=== PATIENT | female | born 1955 | race American Indian/Alaskan Native ===

== ENCOUNTER 2018-04-18 21:45 | Emergency (ER) | payer SELFPAY ==
[~2018-04-18] VITALS: Ht 160 cm; Wt 113.4 kg
[~2018-04-18 21:45] MED LIST: ACET325 PO; AMLO5 PO; ASPI81EC; ATOR20 PO; Aspirin EC81 MG PO; BISA10S PR; CEFU500T30 PO; CHOL10002 PO; CIPR500 PO; CVS DISPOSABLE399 ML PR; CYCL10 PO; DICY20 PO; FLUC150A PO; FURO20; FURO40; Glyburide5 MG PO; HYDACE5 PO; HYDCHL25 PO; IBUP400; LEVFLO250 PO; LEVFLO500 PO; LEVSOD100; LEVSOD100 PO; LEVSOD112 PO; LEVSOD125 PO; LEVSOD25 PO; LISI5; LISI5 PO; LOPE2C PO; LOSA25 PO; LOVA20 PO; LOVA40 PO; METF500 PO; METF500C; METH1TAB8; METO50ER; METR500 PO; Milk Of Ma400 MG/5 M PO; NYST100TC TOP; NYSTATIN1 EAC1 TOP; OMEPRAZOLE MAGN20 MG PO; ONDA4 PO; OXYACE5T PO; PENVK500 PO; POLY500 PO; POTCHL10ER; POTCHL20ER; PROCODE120 PO; PROM25 PO; STOMUL; SULTRIDS PO; Tylenol325 MG PO; [UNRECOGNIZED DRUG - OTHER] TOP
[2018-04-18] MEDS ORDERED: LOSA50 PO (22:18)
[2018-04-18] MEDS ORDERED: FERRIC CITRATE210 MG PO (22:18)
[2018-04-18] MEDS ORDERED: OMEPRAZOLE MAGN20 MG PO (22:22)
[2018-04-18 22:29] LABS: BASOPHILS ABSOLUTE AUTO 0.09 K/mm3 (0.00-0.23); BASOPHILS PERCENT AUTO 1 % (0-2); EOSINOPHILS PERCENT AUTO 9 % (0-6); Hematocrit 38.6 % (33.0-51.0); Hemoglobin 12.8 g/dL (11.5-16.0); IMMATURE GRAN ABSOLUTE AUTO 0.16 K/mm3 (0.00-0.10); IMMATURE GRAN PERCENT AUTO 1 % (0-1); LYMPHOCYTES PERCENT AUTO 30 % (21-46); MONOCYTES ABSOLUTE AUTO 0.89 K/mm3 (0.16-1.47); MONOCYTES PERCENT AUTO 7 % (4-13); Mean Corpuscular HGB 27.9 pg (26.0-34.0); Mean Corpuscular HGB Conc 33.2 g/dL (31.5-36.5); Mean Corpuscular Volume 84 fL (80-100); Mean Platelet Volume 10.3 fL (9.1-12.4); NEUTROPHILS PERCENT AUTO 52 % (41-73); Platelet Count 215 K/mm3 (150-400); RDW Coefficient Variation 13.5 % (11.7-14.2); RDW Standard Deviation 41.9 fL (35.1-46.3); Red Blood Cell Count 4.58 M/mm3 (3.80-5.20); White Blood Cell Count 12.04 K/mm3 (4.00-11.30)
[2018-04-18 22:40] LABS: Prothrombin Time Results 10.3 Sec (9.7-11.5)
[2018-04-18 22:58] LABS: Albumin, Blood 3.7 g/dL (3.4-5.0); Bilirubin, Total 0.3 mg/dL (0.1-1.0); Bun/Creatinine Ratio 23.2 (12.0-20.0); Creatinine, Blood 1.77 mg/dL (0.40-1.00); Globulin, Blood 3.8 g/dL (2.2-4.0); Potassium, Blood 3.7 mmol/L (3.5-5.5); Total Protein, Blood 7.5 g/dL (6.4-8.2)
== END 2018-04-18 23:20 | disposition short-term general hospital (02) ==
LOC: ER 21:45
PROVIDERS: Emergency Medicine
DX: I63.9 Cerebral infarction, unspecified (principal); I69.951 Hemiplegia and hemiparesis following unspecified cerebrovascular disease affecting right dominant side; N28.9 Disorder of kidney and ureter, unspecified; E03.9 Hypothyroidism, unspecified; E11.9 Type 2 diabetes mellitus without complications; I10 Essential (primary) hypertension; E78.00 Pure hypercholesterolemia, unspecified; F17.200 Nicotine dependence, unspecified, uncomplicated; Z79.899 Other long term (current) drug therapy; Z79.82 Long term (current) use of aspirin
CPT/HCPCS: 36415; 51702; 70450; 71045; 80053; 82947; 84484; 85025; 85610; 93005; 93010; 96374; 96375; 99285-25; J2310; J2405; J2997; Q3014

== ENCOUNTER → 2018-11-21 | Outpatient (CLI) | payer MEDICARE, OTHER ==
[~2018-11-21] MED LIST changes: +FERRIC CITRATE210 MG PO; +LOSA50 PO
[2018-11-21 14:30] LABS: Bilirubin, Urine Neg (Neg); Blood, Urine 1+ (Neg); Glucose Qualitative, Urine Neg (Neg); Ketones, Urine Neg (Neg); Leukocyte Esterase, Urine 3+ (Neg); Nitrite, Urine Neg (Neg); Protein, Urine Neg (Neg); Specific Gravity, Urine 1.015 (1.003-1.022); Urobilinogen, Urine NORM (Normal)
[2018-11-21 14:53] LABS: Appearance, Urine Hazy (Clear); Color, Urine Yellow (P-Yellow); White Blood Cells, Urine 50-100 /hpf (0-5)
[2018-11-21 14:54] LABS: Bacteria Many /hpf; Squamous Epithelial Cells Mod /hpf (Few)
== END | disposition home or self-care (01) ==
LOC: LAB 14:22 → LAB SHORT 14:22
PROVIDERS: Nurse Practitioner Family
DX: N39.0 Urinary tract infection, site not specified (principal)
CPT/HCPCS: 81001; 87077; 87086; 87186

== ENCOUNTER 2019-02-24 10:21 | Day surgery (SDC) | payer MEDICARE, OTHER ==
[~2019-02-24] VITALS: Ht 154.9 cm; Wt 88.0 kg
[~2019-02-24 10:21] MED LIST changes: +BUPR75 PO; +CALMOSEPTINE O3.5 GM TOP; +Fruity C250 MG PO; +GLYC2 PO; +Humalog100 UNIT/1 SC; +LACT PO; +MIRALAX17 GM PO; +MULTI VITAMIN1 EACH PO; +Prilosec10 M1 PO; +[UNRECOGNIZED DRUG - OTHER] PO
== END 2019-02-24 12:35 | disposition home or self-care (01) ==
LOC: ORSCSDS 10:21
PROVIDERS: Surgery
PROC: 0DJD8ZZ Inspection of Lower Intestinal Tract, Via Natural or Artificial Opening Endoscopic (ICD-10-PCS; principal; 2019-02-24 11:45)
DX: Z12.11 Encounter for screening for malignant neoplasm of colon (principal); I69.959 Hemiplegia and hemiparesis following unspecified cerebrovascular disease affecting unspecified side; N18.3 Chronic kidney disease, stage 3 (moderate); E03.9 Hypothyroidism, unspecified; E78.5 Hyperlipidemia, unspecified; E11.9 Type 2 diabetes mellitus without complications; G47.33 Obstructive sleep apnea (adult) (pediatric); F17.210 Nicotine dependence, cigarettes, uncomplicated; E66.01 Morbid (severe) obesity due to excess calories; Z68.36 Body mass index [BMI] 36.0-36.9, adult; Z79.4 Long term (current) use of insulin; Z79.899 Other long term (current) drug therapy; Z79.82 Long term (current) use of aspirin
CPT/HCPCS: 82947; J2704; J7120

== ENCOUNTER 2019-03-10 16:44 | Emergency (ER) | payer MEDICARE, OTHER ==
[~2019-03-10] VITALS: Ht 154.9 cm; Wt 77.1 kg
[~2019-03-10 16:44] MED LIST changes: +ASPI81CH PO; -CALMOSEPTINE O3.5 GM TOP; +Calci-Chew500 MG PO; -Fruity C250 MG PO; -MULTI VITAMIN1 EACH PO; +OMEP20ER PO; -Prilosec10 M1 PO; +Thera-M1 EACH PO
[2019-03-10] MEDS ORDERED: BISA10S PR (17:13)
[2019-03-10] MEDS ORDERED: Milk Of Ma400 MG/5 M PO (17:13)
[2019-03-10] MEDS ORDERED: CVS DISPOSABLE399 ML PR (17:14)
[2019-03-10 17:35] LABS: BASOPHILS ABSOLUTE AUTO 0.07 K/mm3 (0.00-0.23); BASOPHILS PERCENT AUTO 0 % (0-2); EOSINOPHILS ABSOLUTE AUTO 0.44 K/mm3 (0.00-0.68); EOSINOPHILS PERCENT AUTO 3 % (0-6); Hemoglobin 12.8 g/dL (11.5-16.0); IMMATURE GRAN ABSOLUTE AUTO 0.11 K/mm3 (0.00-0.10); IMMATURE GRAN PERCENT AUTO 1 % (0-1); LYMPHOCYTES ABSOLUTE AUTO 1.93 K/mm3 (0.84-5.20); LYMPHOCYTES PERCENT AUTO 12 % (21-46); MONOCYTES PERCENT AUTO 7 % (4-13); Mean Corpuscular HGB 25.4 pg (26.0-34.0); Mean Corpuscular HGB Conc 31.2 g/dL (31.5-36.5); Mean Corpuscular Volume 81 fL (80-100); Mean Platelet Volume 10.9 fL (9.1-12.4); NEUTROPHILS ABSOLUTE AUTO 12.99 K/mm3 (1.96-9.15); NEUTROPHILS PERCENT AUTO 78 % (41-73); Platelet Count 265 K/mm3 (150-400); RDW Coefficient Variation 13.7 % (11.7-14.2); Red Blood Cell Count 5.04 M/mm3 (3.80-5.20); White Blood Cell Count 16.64 K/mm3 (4.00-11.30)
[2019-03-10 17:49] LABS: Alanine Aminotransfer (ALT/SGP 21 U/L (12-78); Albumin, Blood 3.7 g/dL (3.4-5.0); Albumin/Globulin Ratio 0.8 (0.8-1.8); Alk Phos 123 U/L (50-136); Anion Gap 11 mmol/L (6-16); Aspartate Aminotrans (AST/SGOT 16 U/L (12-37); Bilirubin, Total 0.6 mg/dL (0.1-1.0); Blood Urea Nitrogen 33 mg/dL (8-24); Bun/Creatinine Ratio 19.2 (12.0-20.0); CO2, Blood 23 mmol/L (21-32); Calcium, Blood 9.7 mg/dL (8.5-10.1); Chloride, Blood 104 mmol/L (98-108); Creatinine, Blood 1.72 mg/dL (0.40-1.00); Globulin, Blood 4.5 g/dL (2.2-4.0); Glomerular Filtration Rate 32 (60-); Glucose, Blood 100 mg/dL (70-99); Sodium, Blood 138 mmol/L (136-145); Total Protein, Blood 8.2 g/dL (6.4-8.2); Troponin I <0.015 ng/mL (0.000-0.040)
[2019-03-10 18:05] LABS: International Normalized Ratio 0.97; Prothrombin Time Results 10.3 Sec (9.7-11.5)
[2019-03-10 19:56] LABS: Source, Urine Clean Catch
[2019-03-10 20:03] LABS: Bilirubin, Urine Neg (Neg); Blood, Urine 5+ (Neg); Glucose Qualitative, Urine Neg (Neg); Ketones, Urine Neg (Neg); Leukocyte Esterase, Urine 3+ (Neg); Nitrite, Urine Pos (Neg); Protein, Urine 1+ (Neg); Specific Gravity, Urine 1.015 (1.003-1.022); Urobilinogen, Urine NORM (Normal)
[2019-03-10 20:09] LABS: Appearance, Urine Hazy (Clear); Color, Urine Pale Yellow (P-Yellow)
[2019-03-10 20:14] LABS: Bacteria Many /hpf; Squamous Epithelial Cells Few /hpf (Few); White Blood Cells, Urine TNTC /hpf (0-5)
[2019-03-10] MEDS ORDERED: CEPH500 PO (20:31)
== END 2019-03-10 21:43 | disposition home or self-care (01) ==
LOC: ER 16:44
PROVIDERS: Emergency Medicine
DX: N39.0 Urinary tract infection, site not specified (principal); Z79.899 Other long term (current) drug therapy; Z79.82 Long term (current) use of aspirin; Z79.4 Long term (current) use of insulin; E03.9 Hypothyroidism, unspecified; E11.9 Type 2 diabetes mellitus without complications; I10 Essential (primary) hypertension; Z86.73 Personal history of transient ischemic attack (TIA), and cerebral infarction without residual deficits; Z87.891 Personal history of nicotine dependence
CPT/HCPCS: 36415; 70450; 72125; 80053; 81001; 84484; 85025; 85610; 87077; 87086; 87186; 93005; 93010; 99285-25

== ENCOUNTER 2019-05-06 16:07 | Inpatient (IN) | payer MEDICARE, OTHER ==
[~2019-05-06] VITALS: Ht 162.6 cm; Wt 87.3 kg
[~2019-05-06 16:07] MED LIST changes: +CEPH500 PO
[2019-05-06 16:37] LABS: BASOPHILS ABSOLUTE AUTO 0.08 K/mm3 (0.00-0.23); BASOPHILS PERCENT AUTO 1 % (0-2); EOSINOPHILS ABSOLUTE AUTO 0.91 K/mm3 (0.00-0.68); EOSINOPHILS PERCENT AUTO 8 % (0-6); Hematocrit 41.4 % (33.0-51.0); Hemoglobin 12.9 g/dL (11.5-16.0); IMMATURE GRAN ABSOLUTE AUTO 0.05 K/mm3 (0.00-0.10); IMMATURE GRAN PERCENT AUTO 0 % (0-1); LYMPHOCYTES ABSOLUTE AUTO 3.27 K/mm3 (0.84-5.20); LYMPHOCYTES PERCENT AUTO 29 % (21-46); MONOCYTES ABSOLUTE AUTO 0.81 K/mm3 (0.16-1.47); MONOCYTES PERCENT AUTO 7 % (4-13); Mean Corpuscular HGB Conc 31.2 g/dL (31.5-36.5); Mean Corpuscular Volume 80 fL (80-100); NEUTROPHILS ABSOLUTE AUTO 6.08 K/mm3 (1.96-9.15); NEUTROPHILS PERCENT AUTO 54 % (41-73); Platelet Count 264 K/mm3 (150-400); RDW Coefficient Variation 13.4 % (11.7-14.2); RDW Standard Deviation 39.2 fL (35.1-46.3); Red Blood Cell Count 5.16 M/mm3 (3.80-5.20)
[2019-05-06 16:53] LABS: International Normalized Ratio 0.97; Prothrombin Time Results 10.3 Sec (9.7-11.5)
[2019-05-06 17:00] LABS: Albumin, Blood 3.6 g/dL (3.4-5.0); Albumin/Globulin Ratio 0.8 (0.8-1.8); Bilirubin, Total 0.5 mg/dL (0.1-1.0); Bun/Creatinine Ratio 16.3 (12.0-20.0); Calcium, Blood 9.8 mg/dL (8.5-10.1); Creatinine, Blood 1.78 mg/dL (0.40-1.00); Globulin, Blood 4.3 g/dL (2.2-4.0); Potassium, Blood 4.2 mmol/L (3.5-5.5); Total Protein, Blood 7.9 g/dL (6.4-8.2)
[2019-05-06 17:51] LABS: Source, Urine Clean Catch
[2019-05-06 18:09] LABS: Bilirubin, Urine Neg (Neg); Blood, Urine 1+ (Neg); Glucose Qualitative, Urine Neg (Neg); Ketones, Urine Neg (Neg); Leukocyte Esterase, Urine 3+ (Neg); Nitrite, Urine Pos (Neg); Protein, Urine Neg (Neg); Urobilinogen, Urine NORM (Normal); pH, Urine 6.5 (5.0-8.0)
[2019-05-06 18:22] LABS: Appearance, Urine Hazy (Clear); Color, Urine Pale Yellow (P-Yellow)
[2019-05-06 18:23] LABS: White Blood Cells, Urine 25-50 /hpf (0-5)
[2019-05-06 18:24] LABS: Bacteria Mod /hpf; Squamous Epithelial Cells Many /hpf (Few)
[2019-05-06] MEDS ORDERED: ASCO500 PO (20:24)
[2019-05-06] MEDS ORDERED: CALMOSEPTINE O3.5 GM TOP (20:32)
[2019-05-06] MEDS ORDERED: HUMULIN N100 UNIT/1 SC (20:33)
--- NOTE | 2019-05-07 04:10 | NUR ---
PT WOKE UP THIS AM WITH HIVES AND SWOLLEN LIPS. ONLY NEW MED PT RECIEVED IS IV ROCEPHIN EARLIER IN THE NIGHT FROM ED. CALLED [facility] TO REPORT FINDINGS, ORDERS IM BENADRYL 50 MG. ADDED ROCEPHIN TO ALLERGY LIST.
--- NOTE | 2019-05-07 05:29 | NUR ---
ONE HOUR POST-ADMINISTRATION OF IM BENADRYL PT IS STILL WITH HIVES BUT SIZE AND FREQUENCY HAS SIGNIFICANTLY DECREASED. STILL ATTEMPTING TO GAIN IV ACCESS, PT QUITE RESTLESS AND RESISTANT.
--- NOTE | 2019-05-07 06:23 | NUR ---
SHIFT SUMMARY PT ADMITTED EARLIER TONIGHT FOR AMS AND METABOLIC ENCEPHALOPATHY, UTI POS. TREATED WITH IV ROCEPHIN IN ER, AND PT WOKE THIS MORNING WITH HIVES. ROCEPHIN ADDED TO ALLERGY LIST AND PT TREATED WITH 50 MG IV BENADRYL WHICH HAS PROVIDED SOME RELIEF SO FAR (PEAK EFFECT IS OVER 1- 4 HRS). PT ALSO RIPPED OUT BOTH IVs, THIS RN ATTEMPTED TO PLACE IV TWICE AND DATA WAREHOUSE MANAGER ATTEMPTED TO PLACE IV TWICE WITH NO SUCCESS PT IS RESTLESS AND PULLS AWAY. PT IS ALERT TO SELF AND ANSWERING YES/NO Q'S. HOWEVER, MOSTLY NONVERBAL. NO OTHER ACUTE CHANGES TO REPORT. WILL CONT TO MONITOR AND PROVIDE CARE UNTIL PRESUMED BY ONCOMING RN.
--- NOTE | 2019-05-07 14:08 | NUR ---
HER LOC WAS DECREASED THIS MORNING. LATER WHEN SHE WAS ALERT, I GAVE HER HER MEDS WHOLE IN PUDDING. CBG'S STABLE. ATTENDS CHANGED PRN. HER SISTER CALLED AND HER DAUGHTER CALEB CAME IN. BOTH ARE ENCOURAGED SHE WILL NOT NEED A LONG HOSPITALIZATION.
--- NOTE | 2019-05-07 17:46 | NUR ---
SHE IS UP IN THE CHAIR FOR DINNER. CHAIR ALARM ON. SHE IS ABLE TO FEED HERSELF. SHE REQUIRED JUST 1 ASSIST. SHE HAS REMAINED ALERT SINCE SHE "WOKE UP" MID-MORNING. ON RA. MOSTLY NONVERBAL. SHE SEEMS TO UNDERSTAND WHAT WE SAY TO HER. PT LUCITALORRAINE WILL BE TOMORROW. HER DAUGHTER WAS HAPPY TO SEE HOW MUCH BETTER SHE LOOKS TODAY.
--- NOTE | 2019-05-08 04:28 | NUR ---
SHIFT SUMMARY NO ACUTE CHANGES TONIGHT. PT IS ALERT TO SELF, FOLLOWS DIRECTIONS, SPEAKING IN SMALL SENTENCES/ANSWERS YES NO Q'S. VSS, RESP E/U ON RA. BED ALARM ON FOR SAFETY PT WILL TRY TO CRAWL OOB WITHOUT ASSISTANCE. HORACIO ROGERS, ULISES. [facility] [place] A [place] D/C BACK TO [place] TODAY. PT RESTING IN BED AT THIS TIME, CALL LT IN REACH. WILL CONT TO MONITOR AND PROVIDE CARE UNTIL PRESUMED BY ONCOMING RN.
[2019-05-08 05:10] LABS: BASOPHILS ABSOLUTE AUTO 0.04 K/mm3 (0.00-0.23); BASOPHILS PERCENT AUTO 1 % (0-2); EOSINOPHILS ABSOLUTE AUTO 0.77 K/mm3 (0.00-0.68); EOSINOPHILS PERCENT AUTO 10 % (0-6); Hematocrit 38.6 % (33.0-51.0); Hemoglobin 12.2 g/dL (11.5-16.0); IMMATURE GRAN ABSOLUTE AUTO 0.02 K/mm3 (0.00-0.10); IMMATURE GRAN PERCENT AUTO 0 % (0-1); LYMPHOCYTES ABSOLUTE AUTO 1.77 K/mm3 (0.84-5.20); LYMPHOCYTES PERCENT AUTO 23 % (21-46); MONOCYTES ABSOLUTE AUTO 0.67 K/mm3 (0.16-1.47); MONOCYTES PERCENT AUTO 9 % (4-13); Mean Corpuscular HGB 25.7 pg (26.0-34.0); Mean Corpuscular HGB Conc 31.6 g/dL (31.5-36.5); Mean Corpuscular Volume 81 fL (80-100); Mean Platelet Volume 10.6 fL (9.1-12.4); NEUTROPHILS ABSOLUTE AUTO 4.48 K/mm3 (1.96-9.15); NEUTROPHILS PERCENT AUTO 58 % (41-73); Platelet Count 236 K/mm3 (150-400); RDW Coefficient Variation 13.6 % (11.7-14.2); RDW Standard Deviation 40.2 fL (35.1-46.3); Red Blood Cell Count 4.74 M/mm3 (3.80-5.20); White Blood Cell Count 7.75 K/mm3 (4.00-11.30)
[2019-05-08 05:24] LABS: Albumin, Blood 3.2 g/dL (3.4-5.0); Anion Gap 7 mmol/L (6-16); Blood Urea Nitrogen 31 mg/dL (8-24); Bun/Creatinine Ratio 15.3 (12.0-20.0); CO2, Blood 27 mmol/L (21-32); Calcium, Blood 9.6 mg/dL (8.5-10.1); Chloride, Blood 108 mmol/L (98-108); Creatinine, Blood 2.02 mg/dL (0.40-1.00); Glomerular Filtration Rate 26 (60-); Glucose, Blood 157 mg/dL (70-99); Phosphorus, Blood 4.2 mg/dL (2.5-4.9); Potassium, Blood 4.1 mmol/L (3.5-5.5); Sodium, Blood 142 mmol/L (136-145)
--- NOTE | 2019-05-08 15:53 | NUR ---
SHIFT SUMMARY PT SLEEPING DURING SHIFT REPORT, THIS AM, BUT WOKE BRIEFLY TO NOD HER HEAD YES. PT BECAME MORE ALERT AND INTERACTIVE THE MORNING WENT ON. PT HAS USED CALL LT TODAY TO REPORT THAT SHE NEEDED TO BE CHANGED. P/T HERE TO WORK WITH PT THIS AFTERNOON, GETTING PT OOB AND WALKING AROUND IN RM AND DOWN HALLS. PT DID VERY WELL WITH SBA AND FWW. O/T TOO JUST HERE, AND REPORTED PT DID VERY WELL. SPEECH CONTINUE'S TO OCCASSIONALLY BE SLOW TO RESPOND WITH BROKEN SENTENCES. A FEW SM RED PATCHES REMAIN SCATTERED ON BACK FROM ABX REACTION, UPON ADMIT. PT APPEARS TO BE BACK TO BASELINE MEDICALLY AND MENTALLY. FOLLOWS DIRECTIONS WELL, WHEN INSTRUCTING HER. DID NOT USE CALL LT WHEN WANTING OUT OF CHAIR THOUGH. WILL CONTINUE TO USE CHAIR AND BED ALARM. CALL LT IN REACH.
--- NOTE | 2019-05-08 20:00 | NUR ---
ASSUMED CARE OF THE PATIENT, PATIENT HAD LARGE BM. ASSISTED DYED RAW STOCK BLOWER FEEDER IN ATTENDS CHANGE, LINEN CHANGE, AND SKIN CARE. NOTED THERE WAS SEVERAL SPOTS OF RED ALL OVER HER BODY, SHE STATES SHE HAD HIVES A FEW DAYS AGO AND THEY ARE GETTING BETTER. SHE HAD THE RED SPOTS ALL OVER TRUNK, LEGS, ARMS AND FACE. OTHER THEN THAT SKIN IS WNL. ASSESSMENT COMPLETED, PLEASE SEE DOCUMENTATION. REPOSITIONED UP IN BED. CALL LIGHT GIVEN.
[2019-05-09 05:34] LABS: Albumin, Blood 3.2 g/dL (3.4-5.0); Anion Gap 8 mmol/L (6-16); Blood Urea Nitrogen 34 mg/dL (8-24); Bun/Creatinine Ratio 18.1 (12.0-20.0); CO2, Blood 25 mmol/L (21-32); Calcium, Blood 9.7 mg/dL (8.5-10.1); Chloride, Blood 109 mmol/L (98-108); Creatinine, Blood 1.88 mg/dL (0.40-1.00); Glomerular Filtration Rate 28 (60-); Glucose, Blood 171 mg/dL (70-99); Phosphorus, Blood 4.1 mg/dL (2.5-4.9); Potassium, Blood 4.1 mmol/L (3.5-5.5); Sodium, Blood 142 mmol/L (136-145)
--- NOTE | 2019-05-09 07:21 | NUR ---
SHIFT SUMMARY: PATIENT HAD A GOOD NIGHT. HAD A LARGE BM AT THE BEGINNING OF THE SHIFT, WHICH SHE WAS CLEANED UP FROM. TOOK MEDS PER EMAR. REPOSITIONED EVERY 2 HOURS ON HER OWN SHE TURNED HER SELF OVER OFTEN. ATTENDS STAYED DRY THROUGHOUT THE NIGHT, SLEPT WELL, NO OTHER ACUTE CHANGES WERE NOTED THIS SHIFT. WILL REPORT TO DAY SHIFT.
--- NOTE | 2019-05-09 17:38 | NUR ---
SHIFT SUMMARY PT SLEEPING AT START OF SHIFT. WOKE BRIEFLY FOR SHIFT REPORT. PT CONTINUES TO IMPROVE. NO ACUTE CHANGES TO PRESENT THIS SHIFT. PT HAS BEEN INCONTINENT OF BOWEL AND BLADDER. CALLED TO BE CHANGED AFTER P/T PUT HER BACK TO BED. P/T HAD ASKED THE PT IF SHE NEEDED TO USE THE BTHRM WHILE UP, BUT DECLINED; THEN CALLED TO BE CHANGED. PT ABLE TO AMBULATE WITH FWW AND SBA. DENIES PAIN. HAS NO COMPLAINTS. MENTATION BACK TO BASELINE; ANS SIMPLE QUESTIONS, USES BROKEN SENTENCES. DAUGHTER IN TO SEE PT THIS AM. DR ALEXANDRE ALSO HERE TO SEE PT; POSSIBLE D/C TOMORROW. WILL MONITOR. CALL LT IN REACH
--- NOTE | 2019-05-09 19:30 | NUR ---
ASSUMED CARE OF THE PATIENT: SHE WAS IN ROOM WATCHING TV, HELPED TO REPOSITION HER WITH USE OF BED. SHE DENIED ANY PAIN OR DISCOMFORT. STATES SHE IS FEELING MUCH BETTER THEN THE OTHER DAYS. ATTENDS DRY AT THIS TIME. DENIED ANY NEEDS. CALL LIGHT IN REACH, ASSESSMENT COMPLETED SEE FOR DETAILS.
[2019-05-10 05:54] LABS: Albumin, Blood 3.2 g/dL (3.4-5.0); Anion Gap 10 mmol/L (6-16); Blood Urea Nitrogen 36 mg/dL (8-24); Bun/Creatinine Ratio 19.4 (12.0-20.0); CO2, Blood 23 mmol/L (21-32); Calcium, Blood 9.7 mg/dL (8.5-10.1); Chloride, Blood 107 mmol/L (98-108); Creatinine, Blood 1.86 mg/dL (0.40-1.00); Glomerular Filtration Rate 29 (60-); Glucose, Blood 183 mg/dL (70-99); Phosphorus, Blood 4.3 mg/dL (2.5-4.9); Potassium, Blood 4.2 mmol/L (3.5-5.5); Sodium, Blood 140 mmol/L (136-145)
--- NOTE | 2019-05-10 06:05 | NUR ---
SHIFT CHANGE PORFIRIO HAD NO ACUTE CHANGES THIS SHIFT. ALL MEDS WERE GIVEN PER EMAR. IV STAYED SL. REPOSITIONED WITH HER ASSIST. SHE HAD ONE LARGE BM, AND A FEW ATTENDS CHANGE. SHE DENIED ANY DISCOMFORT OR COMPLAINTS THIS ENTIRE SHIFT, SLEPT THROUGHOUT THE NIGHT. WILL REPORT TO DAY SHIFT RN.
[2019-05-10] MEDS ORDERED: AMLO5 PO (13:21)
[2019-05-10] MEDS ORDERED: LEVO750 PO (13:22)
--- NOTE | 2019-05-10 13:53 | NUR ---
DISCHARGING TO HOME NOW WITH A CAREGIVER TO [facility]. ORDERS FAXED TO THEM AT [phone]. RX[facility]S FAXED TO [facility]. SHE HAS HAD NO COMPLAINTS.
== END 2019-05-10 13:52 | disposition home or self-care (01) | DRG 689 ==
LOC: ER 16:07 → MEDS 19:39 → ENPENDDIS 05-10 11:30 → MEDS 05-10 13:52
PROVIDERS: Emergency Medicine; Family Medicine; ADMIT Internal Medicine
DX: N39.0 Urinary tract infection, site not specified (principal); G92 Toxic encephalopathy; I69.351 Hemiplegia and hemiparesis following cerebral infarction affecting right dominant side; E11.22 Type 2 diabetes mellitus with diabetic chronic kidney disease; I12.9 Hypertensive chronic kidney disease with stage 1 through stage 4 chronic kidney disease, or unspecified chronic kidney disease; N18.3 Chronic kidney disease, stage 3 (moderate); E89.0 Postprocedural hypothyroidism; E78.5 Hyperlipidemia, unspecified; B96.20 Unspecified Escherichia coli [E. coli] as the cause of diseases classified elsewhere; I25.10 Atherosclerotic heart disease of native coronary artery without angina pectoris; K21.9 Gastro-esophageal reflux disease without esophagitis; I69.328 Other speech and language deficits following cerebral infarction; Z87.440 Personal history of urinary (tract) infections; Z79.82 Long term (current) use of aspirin; Z79.4 Long term (current) use of insulin; Z79.899 Other long term (current) drug therapy; Z95.1 Presence of aortocoronary bypass graft; Z87.891 Personal history of nicotine dependence
CPT/HCPCS: 36415; 70450; 71045; 80053; 80069; 81001; 82947; 83036; 84443; 84484; 85025; 85610; 87077; 87086; 87186; 93005; 93010; 96365; 96375; 97110; 97161; 97165; 97530; 97535; 99285-25; J0696; J1200; J1650; J1815; J2405; J7030

== ENCOUNTER 2019-05-14 17:38 | Emergency (ER) | payer MEDICARE, OTHER ==
[~2019-05-14] VITALS: Ht 165.1 cm; Wt 86.2 kg
[~2019-05-14 17:38] MED LIST changes: +ASCO500 PO; +CALMOSEPTINE O3.5 GM TOP; +HUMULIN N100 UNIT/1 SC; +LEVO750 PO
[2019-05-14 18:55] LABS: BASOPHILS ABSOLUTE AUTO 0.06 K/mm3 (0.00-0.23); BASOPHILS PERCENT AUTO 1 % (0-2); EOSINOPHILS ABSOLUTE AUTO 0.55 K/mm3 (0.00-0.68); EOSINOPHILS PERCENT AUTO 5 % (0-6); Hematocrit 40.6 % (33.0-51.0); Hemoglobin 13.1 g/dL (11.5-16.0); IMMATURE GRAN ABSOLUTE AUTO 0.04 K/mm3 (0.00-0.10); IMMATURE GRAN PERCENT AUTO 0 % (0-1); LYMPHOCYTES ABSOLUTE AUTO 2.35 K/mm3 (0.84-5.20); LYMPHOCYTES PERCENT AUTO 22 % (21-46); MONOCYTES ABSOLUTE AUTO 0.61 K/mm3 (0.16-1.47); MONOCYTES PERCENT AUTO 6 % (4-13); Mean Corpuscular HGB Conc 32.3 g/dL (31.5-36.5); Mean Corpuscular Volume 78 fL (80-100); Mean Platelet Volume 10.7 fL (9.1-12.4); NEUTROPHILS PERCENT AUTO 67 % (41-73); Platelet Count 256 K/mm3 (150-400); RDW Coefficient Variation 13.6 % (11.7-14.2); RDW Standard Deviation 37.8 fL (35.1-46.3); Red Blood Cell Count 5.24 M/mm3 (3.80-5.20); White Blood Cell Count 10.91 K/mm3 (4.00-11.30)
[2019-05-14 19:15] LABS: Albumin, Blood 3.5 g/dL (3.4-5.0); Albumin/Globulin Ratio 0.8 (0.8-1.8); Bilirubin, Total 0.3 mg/dL (0.1-1.0); Bun/Creatinine Ratio 18.4 (12.0-20.0); Calcium, Blood 9.8 mg/dL (8.5-10.1); Creatinine, Blood 1.74 mg/dL (0.40-1.00); Globulin, Blood 4.5 g/dL (2.2-4.0); Potassium, Blood 4.3 mmol/L (3.5-5.5)
[2019-05-14 19:18] LABS: Source, Urine Clean Catch
[2019-05-14] MEDS ORDERED: ASPI81CH PO (19:19)
[2019-05-14 19:21] LABS: Bilirubin, Urine Neg (Neg); Blood, Urine Neg (Neg); Glucose Qualitative, Urine Neg (Neg); Ketones, Urine Neg (Neg); Leukocyte Esterase, Urine Neg (Neg); Nitrite, Urine Neg (Neg); Protein, Urine Neg (Neg); Specific Gravity, Urine 1.015 (1.003-1.022); Urobilinogen, Urine NORM (Normal)
[2019-05-14 19:26] LABS: Appearance, Urine Clear (Clear); Color, Urine Yellow (P-Yellow)
== END 2019-05-14 20:25 | disposition home or self-care (01) ==
LOC: ER 17:38
PROVIDERS: Emergency Medicine
DX: R10.9 Unspecified abdominal pain (principal); I10 Essential (primary) hypertension; E11.9 Type 2 diabetes mellitus without complications; E03.9 Hypothyroidism, unspecified; Z88.8 Allergy status to other drugs, medicaments and biological substances; Z79.899 Other long term (current) drug therapy; Z79.82 Long term (current) use of aspirin; Z79.4 Long term (current) use of insulin; E78.00 Pure hypercholesterolemia, unspecified; Z86.73 Personal history of transient ischemic attack (TIA), and cerebral infarction without residual deficits
CPT/HCPCS: 36415; 80053; 81003; 82947; 83690; 85025; 99284; P9612

== ENCOUNTER 2019-05-22 18:09 | Emergency (ER) | payer MEDICARE, OTHER ==
[~2019-05-22] VITALS: Ht 154.9 cm; Wt 104.3 kg
[2019-05-22 19:53] LABS: BASOPHILS ABSOLUTE AUTO 0.05 K/mm3 (0.00-0.23); BASOPHILS PERCENT AUTO 0 % (0-2); EOSINOPHILS ABSOLUTE AUTO 0.49 K/mm3 (0.00-0.68); EOSINOPHILS PERCENT AUTO 4 % (0-6); Hematocrit 38.6 % (33.0-51.0); Hemoglobin 12.2 g/dL (11.5-16.0); IMMATURE GRAN ABSOLUTE AUTO 0.03 K/mm3 (0.00-0.10); IMMATURE GRAN PERCENT AUTO 0 % (0-1); LYMPHOCYTES ABSOLUTE AUTO 1.32 K/mm3 (0.84-5.20); LYMPHOCYTES PERCENT AUTO 11 % (21-46); MONOCYTES ABSOLUTE AUTO 0.73 K/mm3 (0.16-1.47); MONOCYTES PERCENT AUTO 6 % (4-13); Mean Corpuscular HGB 25.1 pg (26.0-34.0); Mean Corpuscular HGB Conc 31.6 g/dL (31.5-36.5); Mean Corpuscular Volume 79 fL (80-100); Mean Platelet Volume 10.9 fL (9.1-12.4); NEUTROPHILS ABSOLUTE AUTO 9.18 K/mm3 (1.96-9.15); NEUTROPHILS PERCENT AUTO 78 % (41-73); Platelet Count 231 K/mm3 (150-400); RDW Coefficient Variation 13.7 % (11.7-14.2); RDW Standard Deviation 39.7 fL (35.1-46.3); Red Blood Cell Count 4.86 M/mm3 (3.80-5.20)
[2019-05-22 20:25] LABS: Albumin, Blood 3.3 g/dL (3.4-5.0); Albumin/Globulin Ratio 0.9 (0.8-1.8); Bilirubin, Total 0.2 mg/dL (0.1-1.0); Bun/Creatinine Ratio 19.7 (12.0-20.0); Calcium, Blood 9.1 mg/dL (8.5-10.1); Creatinine, Blood 1.52 mg/dL (0.40-1.00); Globulin, Blood 3.8 g/dL (2.2-4.0); Potassium, Blood 4.3 mmol/L (3.5-5.5); Total Protein, Blood 7.1 g/dL (6.4-8.2)
== END 2019-05-22 23:07 | disposition home or self-care (01) ==
LOC: ER 18:09
PROVIDERS: Emergency Medicine
DX: R56.9 Unspecified convulsions (principal); E03.9 Hypothyroidism, unspecified; E78.00 Pure hypercholesterolemia, unspecified; E11.9 Type 2 diabetes mellitus without complications; Z86.73 Personal history of transient ischemic attack (TIA), and cerebral infarction without residual deficits; Z87.891 Personal history of nicotine dependence; Z88.1 Allergy status to other antibiotic agents; Z79.4 Long term (current) use of insulin; Z79.899 Other long term (current) drug therapy; Z79.82 Long term (current) use of aspirin
CPT/HCPCS: 70450; 80053; 85025; 93005; 93010; 96360; 96361; 99285-25; J7030

== ENCOUNTER 2019-11-19 11:39 | Inpatient (IN) | payer MEDICARE, OTHER ==
[~2019-11-19] VITALS: Ht 152.4 cm; Wt 89.2 kg
[~2019-11-19 11:39] MED LIST changes: -CHOL10002 PO; +VITAMIN D35000 UNI2 PO
[2019-11-19 11:57] LABS: BASOPHILS ABSOLUTE AUTO 0.14 K/mm3 (0.00-0.23); BASOPHILS PERCENT AUTO 1 % (0-2); EOSINOPHILS ABSOLUTE AUTO 0.68 K/mm3 (0.00-0.68); EOSINOPHILS PERCENT AUTO 3 % (0-6); Hemoglobin 13.5 g/dL (11.5-16.0); IMMATURE GRAN ABSOLUTE AUTO 0.08 K/mm3 (0.00-0.10); IMMATURE GRAN PERCENT AUTO 0 % (0-1); LYMPHOCYTES ABSOLUTE AUTO 5.37 K/mm3 (0.84-5.20); LYMPHOCYTES PERCENT AUTO 26 % (21-46); MONOCYTES ABSOLUTE AUTO 1.06 K/mm3 (0.16-1.47); MONOCYTES PERCENT AUTO 5 % (4-13); Mean Corpuscular HGB 26.2 pg (26.0-34.0); Mean Corpuscular HGB Conc 30.7 g/dL (31.5-36.5); Mean Platelet Volume 10.7 fL (9.1-12.4); NEUTROPHILS ABSOLUTE AUTO 13.54 K/mm3 (1.96-9.15); NEUTROPHILS PERCENT AUTO 65 % (41-73); Platelet Count 375 K/mm3 (150-400); RDW Coefficient Variation 13.3 % (11.7-14.2); RDW Standard Deviation 41.1 fL (35.1-46.3); Red Blood Cell Count 5.16 M/mm3 (3.80-5.20); White Blood Cell Count 20.87 K/mm3 (4.00-11.30)
[2019-11-19 12:01] LABS: Mean Corpuscular Volume 85 fL (80-100)
[2019-11-19 12:20] LABS: Alanine Aminotransfer (ALT/SGP 23 U/L (12-78); Albumin, Blood 3.8 g/dL (3.4-5.0); Albumin/Globulin Ratio 0.8 (0.8-1.8); Alk Phos 134 U/L (50-136); Anion Gap 22 mmol/L (6-16); Aspartate Aminotrans (AST/SGOT 17 U/L (12-37); Bilirubin, Total 0.3 mg/dL (0.1-1.0); Blood Urea Nitrogen 30 mg/dL (8-24); Bun/Creatinine Ratio 17.3 (12.0-20.0); CO2, Blood 12 mmol/L (21-32); Calcium, Blood 9.7 mg/dL (8.5-10.1); Chloride, Blood 101 mmol/L (98-108); Creatinine, Blood 1.73 mg/dL (0.40-1.00); Globulin, Blood 4.8 g/dL (2.2-4.0); Glomerular Filtration Rate 31 (60-); Glucose, Blood 212 mg/dL (70-99); Sodium, Blood 135 mmol/L (136-145); Total Protein, Blood 8.6 g/dL (6.4-8.2); Troponin I <0.015 ng/mL (0.000-0.040)
[2019-11-19 12:40] LABS: Source, Urine Catheter
[2019-11-19 12:46] LABS: Bilirubin, Urine Neg (Neg); Blood, Urine 2+ (Neg); Glucose Qualitative, Urine Neg (Neg); Ketones, Urine Neg (Neg); Leukocyte Esterase, Urine 3+ (Neg); Nitrite, Urine Pos (Neg); Protein, Urine 3+ (Neg); Specific Gravity, Urine 1.015 (1.003-1.022); Urobilinogen, Urine NORM (Normal)
[2019-11-19 12:53] LABS: Appearance, Urine Cloudy (Clear); Color, Urine Yellow (P-Yellow)
[2019-11-19 12:54] LABS: Red Blood Cells, Urine 25-50 /hpf (0-2); White Blood Cells, Urine TNTC /hpf (0-5)
[2019-11-19 12:55] LABS: Bacteria Many /hpf; Squamous Epithelial Cells Not Seen /hpf (Few)
[2019-11-19] MEDS ORDERED: BASAGLAR K100 UNIT/1 (12:55)
[2019-11-19] MEDS ORDERED: BASAGLAR K100 UNIT/1 SC ×2 (12:56→12:58)
[2019-11-19 12:57] LABS: U Amphetamine Screen Not Detected; U Barbituate Screen Not Detected; U Benzodiazapine Screen Not Detected; U Cocaine Screen Not Detected; U Methadone Screen Not Detected; U Methamphetamine Screen Not Detected; U Opiates Screen Not Detected
[2019-11-19 12:58] LABS: U Buprenorphine Screen Not Detected; U Cannabinoids Screen Not Detected; U Oxycodone Screen Not Detected; U Propoxyphene Screen Not Detected
[2019-11-19] MEDS ORDERED: LEVSOD137 PO (12:58)
[2019-11-19] MEDS ORDERED: TRULICITY0.75 MG/0. SC (13:00)
[2019-11-19 13:54] LABS: Free Thyroxine 1.2 ng/dL (0.70-1.60)
[2019-11-19 13:56] LABS: Triiodothyronine, Free 1.59 pg/mL (2.18-3.98)
--- NOTE | 2019-11-19 18:26 | NUR ---
EVENING NOTE PT RESTING QUIETLY. SR. VSS. SHE WILL OPEN HER EYES TO HER NAME. MOVING ALL EXTREMITIES. SHE DID TALK WITH HER DAUGHTER. SINGLE WORD ANSWERS. SHE DENIED PAIN. SEIZURE PADS ON BED. RAILS UP FOR SEIZURE PRECAUTIONS. SUCTION SET UP AND HOB 30 DEGREES. NPO. IV INFUSING. REPEAT LACTIC ACID DECREASED. PT POLST STATED FULL CODE BUT SHE CAME WITH AN ORDER FOR DNR. STATUS CONFIRMED WITH DAUGHTERS. PT IS A FULL CODE. NO PURPLE BAND ON HER WRIST. CALL LIGHT WITH IN REACH. CONTINUE POT.
--- NOTE | 2019-11-19 19:45 | NUR ---
Assumed Care Pt difficult to arrouse at time of shift change. Pt visualized with off going RN who confirms mentation status as congruent with day shift. Pt minimally responsive to verbal, more responsive to physical stimulous (shaking of shoulders with talking). Able to state name and . Pt is s/p seizure - seizure precautions in place, pads on bed, suction set up and verified functional. VSS. See shift assessment for detailed assessment. Strict NPO Status. Repositioned q2. Skin overall CDI. Yeast to nadeem-area. Powder and pillow cases applied to keep dry. Giraldo cath in place, patent and draining cloudy yellow urine with some sediment. Will continue to monitor.
[2019-11-19 22:35] LABS: PCO2 Arterial 37.8 mmHg (35-45); PO2 Arterial 68.8 mmHg (80-100); pH Blood Arterial 7.43 (7.35-7.45)
[2019-11-20 03:58] LABS: BASOPHILS ABSOLUTE AUTO 0.05 K/mm3 (0.00-0.23); BASOPHILS PERCENT AUTO 0 % (0-2); EOSINOPHILS ABSOLUTE AUTO 0.47 K/mm3 (0.00-0.68); EOSINOPHILS PERCENT AUTO 4 % (0-6); Hemoglobin 11.4 g/dL (11.5-16.0); IMMATURE GRAN ABSOLUTE AUTO 0.04 K/mm3 (0.00-0.10); IMMATURE GRAN PERCENT AUTO 0 % (0-1); LYMPHOCYTES ABSOLUTE AUTO 2.86 K/mm3 (0.84-5.20); LYMPHOCYTES PERCENT AUTO 24 % (21-46); MONOCYTES ABSOLUTE AUTO 0.84 K/mm3 (0.16-1.47); MONOCYTES PERCENT AUTO 7 % (4-13); Mean Corpuscular HGB 25.4 pg (26.0-34.0); Mean Corpuscular HGB Conc 31.7 g/dL (31.5-36.5); Mean Platelet Volume 10.2 fL (9.1-12.4); NEUTROPHILS ABSOLUTE AUTO 7.51 K/mm3 (1.96-9.15); NEUTROPHILS PERCENT AUTO 64 % (41-73); Platelet Count 286 K/mm3 (150-400); RDW Coefficient Variation 13.4 % (11.7-14.2); RDW Standard Deviation 39.2 fL (35.1-46.3); Red Blood Cell Count 4.49 M/mm3 (3.80-5.20); White Blood Cell Count 11.77 K/mm3 (4.00-11.30)
[2019-11-20 03:59] LABS: Mean Corpuscular Volume 80 fL (80-100)
[2019-11-20 04:15] LABS: Albumin, Blood 2.9 g/dL (3.4-5.0); Albumin/Globulin Ratio 0.8 (0.8-1.8); Bilirubin, Total 0.2 mg/dL (0.1-1.0); Bun/Creatinine Ratio 15.8 (12.0-20.0); Calcium, Blood 8.9 mg/dL (8.5-10.1); Creatinine, Blood 1.52 mg/dL (0.40-1.00); Globulin, Blood 3.8 g/dL (2.2-4.0); Magnesium, Blood 1.8 mg/dL (1.6-2.4); Potassium, Blood 3.6 mmol/L (3.5-5.5); Total Protein, Blood 6.7 g/dL (6.4-8.2)
--- NOTE | 2019-11-20 04:49 | NUR ---
Shift Summary Pt with no acute changes this shift, remains lethargic but improving. Pt arrousable, oriented and able to respond appropriately to orientation questions. VSS. Catheter patent/draining cloudy yellow urine. Repositioned q2. One large soft BM. Pt in contact isolation for MRSA in Eye - pt already recieved ABX before clearing swabs could be collected. ABG ordered by provider and obtained - wnl. Pt's daughter in to see pt this shift, updated on pt condition. No acute changes from initial shift assessment. Will continue to monitor.
--- NOTE | 2019-11-20 06:41 | NUR ---
eeg in progress in room.
--- NOTE | 2019-11-20 19:30 | NUR ---
EVENING NOTE PT RESTING. SR. VSS. PT FREQUENTLY UP TO CHAIR. VOIDED WELL POST SCHAEFER REMOVEL. AMBULATION TO BATHROOM WITH FWW. TALKED WITH MIAN PEÑALOZA FROM [facility]. SHE CAME TO SEE PT. PT TOLERATING MECHANICAL/NECTAR DIET. SHE REALLY LIKES THICKENED ROOTBEER. CONTINUE POT.
--- NOTE | 2019-11-20 19:55 | NUR ---
Assumed Care Pt alert to verbal stim at time of shift change. Aphasia present, thick speech, oriented to person, place, time. Able to follow direction appropriately. Able to assist with turning. Attends in place, changed since shift change. Pt cooperative with repositions. See shift assessment for detailed assessment. No PO medications given so far, pt is [facility] nectar thick diet with no straw use per ST. IV Keppra given per orders. Seizure precautions in place, pads on bed, suction set up and verified functional. No acute concerns to note, will continue to monitor.
--- NOTE | 2019-11-21 06:27 | NUR ---
Shift Summary Pt with no acute changes this shift. Mentation status uncahnged from start of shift. Incont of urine, attends in place and dry at this time. Pt with swallow precautions. Plan is to transition to PO medications today per MD notes. No changes from shift assessment. Will continue to montior until day RN.
--- NOTE | 2019-11-21 08:56 | NUR ---
AM NOTE... ASSUMED CARE OF PT APROX 0700. PT IS A&Ox4, SHE IS SLOW TO RESPOND W/HX OF CVA AND SEIZURES. PT'S VS ARE STABLE AT THIS TIME. L/S CLEAR AND DIM T/O, EVEN AND UNLABORED. PT IS UP IN THE CHAIR FOR BREAKFAST, SWALLOW PRECAUTIONS BEING FOLLOWED. CALL LIGHT IN REACH WILL CONTINUE TO MONITOR.
[2019-11-21] MEDS ORDERED: LEVE500 PO (13:45)
[2019-11-21] MEDS ORDERED: LEVFLO500 PO (13:46)
== END 2019-11-21 15:21 | disposition home or self-care (01) | DRG 872 ==
LOC: ER 11:39 → PCU 15:21
PROVIDERS: Emergency Medicine; Internal Medicine; Nurse Practitioner Acute Care; ADMIT Internal Medicine
DX: A41.9 Sepsis, unspecified organism (principal); E87.2 Acidosis; N39.0 Urinary tract infection, site not specified; I69.359 Hemiplegia and hemiparesis following cerebral infarction affecting unspecified side; Z79.82 Long term (current) use of aspirin; Z79.4 Long term (current) use of insulin; E03.9 Hypothyroidism, unspecified; Z87.891 Personal history of nicotine dependence; E11.22 Type 2 diabetes mellitus with diabetic chronic kidney disease; R32 Unspecified urinary incontinence; K21.9 Gastro-esophageal reflux disease without esophagitis; I12.9 Hypertensive chronic kidney disease with stage 1 through stage 4 chronic kidney disease, or unspecified chronic kidney disease; R56.9 Unspecified convulsions
CPT/HCPCS: 36415; 36600; 51702; 70450; 71045; 80053; 81001; 82550; 82803; 82947; 83605; 83735; 84439; 84443; 84481; 84484; 85025; 87040; 87077; 87086; 87186; 92526; 92610; 93005; 93010; 95819; 96365; 96366; 96367; 96375; 97162; 97165; 99285-25; A9270-GY; C9113; J1953; J1956; J7030; J7120

== ENCOUNTER → 2020-02-08 | Outpatient (CLI) | payer MEDICARE, OTHER ==
[~2020-02-08] MED LIST changes: +BASAGLAR K100 UNIT/1; +BASAGLAR K100 UNIT/1 SC; +LEVE500 PO; +LEVSOD137 PO; +TRULICITY0.75 MG/0. SC
[2020-02-08 12:09] LABS: BASOPHILS PERCENT AUTO 1 % (0-2); EOSINOPHILS PERCENT AUTO 8 % (0-6); Hematocrit 42.7 % (33.0-51.0); Hemoglobin 13.4 g/dL (11.5-16.0); IMMATURE GRAN ABSOLUTE AUTO 0.03 K/mm3 (0.00-0.10); IMMATURE GRAN PERCENT AUTO 0 % (0-1); LYMPHOCYTES ABSOLUTE AUTO 2.66 K/mm3 (0.84-5.20); LYMPHOCYTES PERCENT AUTO 24 % (21-46); MONOCYTES ABSOLUTE AUTO 0.76 K/mm3 (0.16-1.47); MONOCYTES PERCENT AUTO 7 % (4-13); Mean Corpuscular HGB Conc 31.4 g/dL (31.5-36.5); Mean Corpuscular Volume 80 fL (80-100); Mean Platelet Volume 10.7 fL (9.1-12.4); NEUTROPHILS ABSOLUTE AUTO 6.71 K/mm3 (1.96-9.15); NEUTROPHILS PERCENT AUTO 60 % (41-73); Platelet Count 267 K/mm3 (150-400); RDW Coefficient Variation 14.1 % (11.7-14.2); RDW Standard Deviation 40.9 fL (35.1-46.3); Red Blood Cell Count 5.35 M/mm3 (3.80-5.20); White Blood Cell Count 11.16 K/mm3 (4.00-11.30)
[2020-02-08 12:22] LABS: Albumin, Blood 3.5 g/dL (3.4-5.0); Albumin/Globulin Ratio 0.8 (0.8-1.8); Bilirubin, Total 0.4 mg/dL (0.1-1.0); Bun/Creatinine Ratio 17.4 (12.0-20.0); Calcium, Blood 9.6 mg/dL (8.5-10.1); Creatinine, Blood 1.49 mg/dL (0.40-1.00); Globulin, Blood 4.3 g/dL (2.2-4.0); Potassium, Blood 4.1 mmol/L (3.5-5.5); Total Protein, Blood 7.8 g/dL (6.4-8.2)
[2020-02-08 12:27] LABS: Thyroid Stimulating Hormone 4.59 uIU/mL (0.360-4.800)
== END ==
LOC: LAB 09:45 → LAB SHORT 09:45
PROVIDERS: Nurse Practitioner Family
DX: E11.65 Type 2 diabetes mellitus with hyperglycemia (principal); E11.42 Type 2 diabetes mellitus with diabetic polyneuropathy; E11.22 Type 2 diabetes mellitus with diabetic chronic kidney disease; N18.3 Chronic kidney disease, stage 3 (moderate); E78.2 Mixed hyperlipidemia
CPT/HCPCS: 80053; 83036; 84443; 85025

== ENCOUNTER → 2020-02-27 | Outpatient (CLI) | payer MEDICARE, OTHER ==
[2020-02-27 20:00] LABS: Bilirubin, Urine Neg (Neg); Blood, Urine Neg (Neg); Glucose Qualitative, Urine Neg (Neg); Ketones, Urine Neg (Neg); Leukocyte Esterase, Urine 1+ (Neg); Nitrite, Urine Neg (Neg); Protein, Urine Neg (Neg); Urobilinogen, Urine NORM (Normal)
[2020-02-27 20:06] LABS: Appearance, Urine Clear (Clear); Color, Urine Yellow (P-Yellow)
[2020-02-27 20:07] LABS: Amorphous Light (0-Heavy); Bacteria Many /hpf; Red Blood Cells, Urine Not Seen /hpf (0-2); Squamous Epithelial Cells Rare /hpf (Few)
== END | disposition home or self-care (01) ==
LOC: LAB SHORT 18:50 → LAB 18:50
PROVIDERS: Nurse Practitioner Family
DX: N39.0 Urinary tract infection, site not specified (principal)
CPT/HCPCS: 81001; 87086

== ENCOUNTER → 2020-03-08 | Outpatient (CLI) | payer MEDICARE, OTHER ==
[2020-03-08 12:48] LABS: Percent Saturation 30.8 % (15.0-50.0)
[2020-03-08 12:49] LABS: Albumin, Blood 3.5 g/dL (3.4-5.0); Anion Gap 8 mmol/L (6-16); Blood Urea Nitrogen 25 mg/dL (8-24); Bun/Creatinine Ratio 17.7 (12.0-20.0); CO2, Blood 23 mmol/L (21-32); Calcium, Blood 9.9 mg/dL (8.5-10.1); Chloride, Blood 105 mmol/L (98-108); Creatinine, Blood 1.41 mg/dL (0.40-1.00); Glomerular Filtration Rate 40 (60-); Glucose, Blood 157 mg/dL (70-99); Phosphorus, Blood 3.5 mg/dL (2.5-4.9); Potassium, Blood 4.4 mmol/L (3.5-5.5); Sodium, Blood 136 mmol/L (136-145)
== END | disposition home or self-care (01) ==
LOC: LAB 11:02 → LAB SHORT 11:02
PROVIDERS: Internal Medicine Nephrology
DX: N18.3 Chronic kidney disease, stage 3 (moderate) (principal); D63.1 Anemia in chronic kidney disease; D51.8 Other vitamin B12 deficiency anemias; D52.8 Other folate deficiency anemias; D50.9 Iron deficiency anemia, unspecified
CPT/HCPCS: 80069; 82607; 82728; 82746; 83540; 83550

== ENCOUNTER 2020-04-15 09:20 | Inpatient (IN) | payer MEDICARE, OTHER ==
[~2020-04-15] VITALS: Ht 154.9 cm; Wt 86.9 kg
[2020-04-15 09:47] LABS: BASOPHILS ABSOLUTE AUTO 0.07 K/mm3 (0.00-0.23); BASOPHILS PERCENT AUTO 0 % (0-2); EOSINOPHILS PERCENT AUTO 0 % (0-6); Hematocrit 50.5 % (33.0-51.0); Hemoglobin 16.6 g/dL (11.5-16.0); IMMATURE GRAN ABSOLUTE AUTO 0.32 K/mm3 (0.00-0.10); IMMATURE GRAN PERCENT AUTO 1 % (0-1); LYMPHOCYTES ABSOLUTE AUTO 1.16 K/mm3 (0.84-5.20); LYMPHOCYTES PERCENT AUTO 4 % (21-46); MONOCYTES ABSOLUTE AUTO 2.81 K/mm3 (0.16-1.47); MONOCYTES PERCENT AUTO 9 % (4-13); Mean Corpuscular HGB 27.6 pg (26.0-34.0); Mean Corpuscular HGB Conc 32.9 g/dL (31.5-36.5); Mean Corpuscular Volume 84 fL (80-100); Mean Platelet Volume 10.4 fL (9.1-12.4); NEUTROPHILS ABSOLUTE AUTO 28.59 K/mm3 (1.96-9.15); NEUTROPHILS PERCENT AUTO 87 % (41-73); Platelet Count 264 K/mm3 (150-400); RDW Coefficient Variation 15.3 % (11.7-14.2); RDW Standard Deviation 46.5 fL (35.1-46.3); Red Blood Cell Count 6.01 M/mm3 (3.80-5.20); White Blood Cell Count 32.95 K/mm3 (4.00-11.30)
[2020-04-15 10:06] LABS: Source, Urine Catheter
[2020-04-15 10:06] LABS: International Normalized Ratio 1.12; Prothrombin Time Results 11.9 Sec (9.7-11.5)
[2020-04-15 10:12] LABS: Alanine Aminotransfer (ALT/SGP 24 U/L (12-78); Albumin, Blood 3.4 g/dL (3.4-5.0); Albumin/Globulin Ratio 0.7 (0.8-1.8); Alk Phos 111 U/L (50-136); Anion Gap 10 mmol/L (6-16); Aspartate Aminotrans (AST/SGOT 25 U/L (12-37); Bilirubin, Total 0.9 mg/dL (0.1-1.0); Blood Urea Nitrogen 28 mg/dL (8-24); Bun/Creatinine Ratio 16.1 (12.0-20.0); CO2, Blood 21 mmol/L (21-32); Calcium, Blood 9.7 mg/dL (8.5-10.1); Chloride, Blood 106 mmol/L (98-108); Creatinine, Blood 1.74 mg/dL (0.40-1.00); Globulin, Blood 5.2 g/dL (2.2-4.0); Glomerular Filtration Rate 31 (60-); Glucose, Blood 222 mg/dL (70-99); Potassium, Blood 4.3 mmol/L (3.5-5.5); Sodium, Blood 137 mmol/L (136-145); Total Protein, Blood 8.6 g/dL (6.4-8.2)
[2020-04-15 10:13] LABS: Ethanol (Alcohol), Blood, Med <3 mg/dL
[2020-04-15 10:15] LABS: Appearance, Urine Turbid (Clear); Blood, Urine 3+ (Neg); Color, Urine Yellow (P-Yellow); Glucose Qualitative, Urine Neg (Neg); Ketones, Urine 1+ (Neg); Leukocyte Esterase, Urine 3+ (Neg); Nitrite, Urine Neg (Neg); Protein, Urine 3+ (Neg); Specific Gravity, Urine 1.025 (1.003-1.022); Urobilinogen, Urine 1+ (Normal)
[2020-04-15 10:29] LABS: Bilirubin, Urine 1+ (Neg)
[2020-04-15 10:31] LABS: White Blood Cells, Urine TNTC /hpf (0-5)
[2020-04-15 10:32] LABS: Bacteria Many /hpf; Squamous Epithelial Cells Mod /hpf (Few)
[2020-04-15 10:33] LABS: Transitional Epithelial Cells Few /hpf (0-Rare)
[2020-04-15 10:50] LABS: U Amphetamine Screen Not Detected; U Barbituate Screen Not Detected; U Benzodiazapine Screen Not Detected; U Buprenorphine Screen Not Detected; U Cannabinoids Screen Not Detected; U Cocaine Screen Not Detected; U Methadone Screen Not Detected; U Methamphetamine Screen Not Detected; U Opiates Screen Not Detected; U Oxycodone Screen Not Detected; U Phencyclidine Screen Not Detected; U Propoxyphene Screen Not Detected
[2020-04-15] MEDS ORDERED: Aspirin EC81 MG PO (12:50)
[2020-04-15] MEDS ORDERED: AMLO5 PO (12:50)
[2020-04-15] MEDS ORDERED: ATOR20 PO (12:50)
[2020-04-15] MEDS ORDERED: HUMALOG100 UNIT/1 SC ×2 (12:51→12:52)
[2020-04-15] MEDS ORDERED: LEVE500 PO (12:52)
[2020-04-15] MEDS ORDERED: OMEP20ER PO (12:52)
[2020-04-15] MEDS ORDERED: LEVSOD137 PO (12:52)
[2020-04-15] MEDS ORDERED: BASAGLAR K100 UNIT/1 SC (12:52)
[2020-04-15] MEDS ORDERED: MIRALAX17 GM PO (12:53)
[2020-04-15] MEDS ORDERED: Hair, Skin & N1 EACH PO (12:53)
[2020-04-15] MEDS ORDERED: ASCO500 PO (12:53)
[2020-04-15] MEDS ORDERED: TRULICITY1.5 MG/0.1 SC (12:53)
--- NOTE | 2020-04-15 15:05 | NUR ---
PT ARRIVED TO PCU 4 VIA [facility] FROM ED. REPORT FROM MIAN JANG. PT IS AWAKE, BUT DROWSY, MOANING. SHE WAS ABLE TO STAND AND TRANSFER TO BED FROM [facility] BUT WEAK AND SHAKEY, WOULD USE TWO PEOPLE TO TRANSFER AND BEDSIDE CAMMODE, LUNGS ARE CLEAR, BUT SHE IS MAKING MOUTH NOISE AND DIFFICULT TO AUSCLUTATE, SATS OVER 90 ON R/A, RESP EVEN AND UNLABORED, NO COUGH NOTED, HRR, TELE IN PLACE RUNNING ST WITH BBB, NO EDEMA NOTED, PPP+1, CAP REFILL <3SEC, VS STABLE, AFEBRILE, IV SITES ARE CLEAR AND PATENT TO RIGHT WRIST AND RIGHT SHOULDER AREA, BTX4, ABD LARGE SOFT NONTENDER, VOIDS VIA BSC, ALSO HAS PULLUPS IN PLACE, SKIN HAS TWO ROUND ABRASIONS TO B/L KNEES SECONDARY TO A FALL, WILL PLACE BANDAID OVER SORES, PT FELL AT HOME ONTO HER KNEES, HER KNEES ARE HER ONLY COMPLAINTS OF PAIN, FEET ARE =, HARNESS FITTER ARE =, BUT SHE IS VERY WEAK, AND MAY NOT BE GETTING A CLEAR PICTURE OF STRENGTH. RHETT, STATES SHE CAN'T SWALLOW RIGHT NOW, IS INCREASING TEMP TO 101.2, CALLED DR. BENAVIDEZ FOR TYLENOL CT. ORIENTED TO ROOM LAYOUT AND CALL SYSTEM, CALL LIGHT IN REACH. LIGHT IN REACH.
--- NOTE | 2020-04-15 16:35 | NUR ---
PT BEGAN HAVING RIGORS, TEMP 101.7, TYLENOL SUPPOS GIVEN, SURGICAL CONSULT WAS CALLED INTO DR. IRVIN OFFICE. THE RIGORS STOPPED. TEMP DOWN TO 101.3. PT LETHARGIC. BUT OPENS HER EYES WHEN IN ROOM. CALL LIGHT IN REACH.
--- NOTE | 2020-04-15 18:01 | NUR ---
PT LOOKS BETTER, HER FEVER BROKE, IS AFEBRILE NOW. DAUGHTER AT BEDSIDE. CALL LIGHT IN REACH.
--- NOTE | 2020-04-16 06:04 | NUR ---
END OF SHIFT SUMMARY NO ACUTE CHANGES THIS SHIFT. VSS. PT REMAINS ALERT BUT LETHARGIC. RESPONDS EOTH YES, NO, I DONT KNOW. FOLLOWS DIRECTION SLOWLY. REMAINS SR TO ST. PT BEING TURNED BY STAFF. HAS SHOWN SOME INCREASED ALERTNESS AND ORIENTATION FROM BEGINNING OF SHIFT. BED ALARM IN PLACE. PT NOT BEING IMPULSIVE. WILL CONTINUE TO MONITOR UNTIL SHIFT CHANGE.
[2020-04-16 06:10] LABS: BASOPHILS ABSOLUTE AUTO 0.08 K/mm3 (0.00-0.23); BASOPHILS PERCENT AUTO 0 % (0-2); EOSINOPHILS PERCENT AUTO 0 % (0-6); Hematocrit 43.1 % (33.0-51.0); Hemoglobin 14.1 g/dL (11.5-16.0); IMMATURE GRAN ABSOLUTE AUTO 0.44 K/mm3 (0.00-0.10); IMMATURE GRAN PERCENT AUTO 1 % (0-1); LYMPHOCYTES ABSOLUTE AUTO 0.98 K/mm3 (0.84-5.20); LYMPHOCYTES PERCENT AUTO 3 % (21-46); MONOCYTES ABSOLUTE AUTO 1.61 K/mm3 (0.16-1.47); MONOCYTES PERCENT AUTO 5 % (4-13); Mean Corpuscular HGB Conc 32.7 g/dL (31.5-36.5); Mean Corpuscular Volume 86 fL (80-100); Mean Platelet Volume 10.8 fL (9.1-12.4); NEUTROPHILS ABSOLUTE AUTO 28.47 K/mm3 (1.96-9.15); NEUTROPHILS PERCENT AUTO 90 % (41-73); Platelet Count 198 K/mm3 (150-400); RDW Coefficient Variation 15.8 % (11.7-14.2); RDW Standard Deviation 49.6 fL (35.1-46.3); Red Blood Cell Count 5.03 M/mm3 (3.80-5.20); White Blood Cell Count 31.58 K/mm3 (4.00-11.30)
[2020-04-16 06:27] LABS: Bun/Creatinine Ratio 18.1 (12.0-20.0); Creatinine, Blood 1.71 mg/dL (0.40-1.00); Potassium, Blood 3.9 mmol/L (3.5-5.5)
--- NOTE | 2020-04-16 11:00 | NUR ---
UPDATE PT TAKEN TO DAY SURGERY. WILL AWAIT RETURN.
--- NOTE | 2020-04-16 11:47 | NUR ---
INTO SDS VIA GURNY FROM PCU. History, Chart, Medications and Allergies reviewed before start of procedure.Patient confirms NPO status and agrees with scheduled surgery. Surgical site prepped with 2% Chlorhexidine cloth wipe.
--- NOTE | 2020-04-16 14:30 | NUR ---
PT RETURNED FROM PACU. VS STABLE. PT DENIES ANY PAIN AT THIS TIME. ILANA DRAIN IN PLACE WITH SANGUINEOUS DRAINAGE. WILL CONTINUE TO MONITOR CLOSELY.
--- NOTE | 2020-04-16 18:04 | NUR ---
SHIFT SUMMARY PT ALERT AND ORIENTED TO SELF, PLACE, AND FOLLOWING DIRECTIONS. VS STABLE. PT ON 4L NC SINCE RETURN FROM SURGERY WITH SATS REMAINING ABOVE 90%. BP STABLE. HR NSR TO SINUS TACH. PT INCONTINENT OF BOWEL AND BLADDER. ATTENDS IN PLACE. PT REPOSITIONED Q2H. DAUGHTER AT BEDSIDE. WILL CONTINUE TO MONITOR CLOSELY AND REPORT TO ONCOMING RN.
[2020-04-17 03:51] LABS: BASOPHILS ABSOLUTE AUTO 0.04 K/mm3 (0.00-0.23); BASOPHILS PERCENT AUTO 0 % (0-2); EOSINOPHILS ABSOLUTE AUTO 0.03 K/mm3 (0.00-0.68); EOSINOPHILS PERCENT AUTO 0 % (0-6); Hematocrit 37.6 % (33.0-51.0); Hemoglobin 12.2 g/dL (11.5-16.0); IMMATURE GRAN ABSOLUTE AUTO 0.14 K/mm3 (0.00-0.10); IMMATURE GRAN PERCENT AUTO 1 % (0-1); LYMPHOCYTES ABSOLUTE AUTO 1.29 K/mm3 (0.84-5.20); LYMPHOCYTES PERCENT AUTO 7 % (21-46); MONOCYTES ABSOLUTE AUTO 1.14 K/mm3 (0.16-1.47); MONOCYTES PERCENT AUTO 6 % (4-13); Mean Corpuscular HGB 27.9 pg (26.0-34.0); Mean Corpuscular HGB Conc 32.4 g/dL (31.5-36.5); Mean Corpuscular Volume 86 fL (80-100); Mean Platelet Volume 10.6 fL (9.1-12.4); NEUTROPHILS ABSOLUTE AUTO 15.46 K/mm3 (1.96-9.15); NEUTROPHILS PERCENT AUTO 85 % (41-73); Platelet Count 172 K/mm3 (150-400); RDW Coefficient Variation 15.9 % (11.7-14.2); RDW Standard Deviation 50.5 fL (35.1-46.3); Red Blood Cell Count 4.37 M/mm3 (3.80-5.20)
[2020-04-17 04:08] LABS: Albumin, Blood 2.1 g/dL (3.4-5.0); Anion Gap 6 mmol/L (6-16); Blood Urea Nitrogen 37 mg/dL (8-24); CO2, Blood 23 mmol/L (21-32); Calcium, Blood 8.4 mg/dL (8.5-10.1); Chloride, Blood 112 mmol/L (98-108); Creatinine, Blood 1.76 mg/dL (0.40-1.00); Glomerular Filtration Rate 31 (60-); Glucose, Blood 132 mg/dL (70-99); Phosphorus, Blood 2.8 mg/dL (2.5-4.9); Potassium, Blood 3.7 mmol/L (3.5-5.5); Sodium, Blood 141 mmol/L (136-145)
--- NOTE | 2020-04-17 06:30 | NUR ---
END O9F SHIFT SUMMARY NO ACUTE CHANGES THIS SHIFT. VSS. PT ALERT BUT OMETIMES HAS DIFFICULTY COMMUNICATING. STATES THIS IS CLOSE TO BASELINE PER CONVERSATION ON PHONE. PT BEING TURNED T/O NIGHT. HAS HAD MULTIPLE LOOSE BROWN PASTY BM'S. ILANA DRAIN WITH SANGUINOUS DRAINAGE. SITE INTACT. DRESSING SECURE. NO OVERT RENDESS/WARMTH TO INCISIOON SITE. LAPRASCOPIC INCISION/SUTURES CDI. PT ON CLEAR LIQUIDS, TOLERATING WELL. WILL CONTINUEN TO MONITOR UNTIL SHIFT CHANGE.
--- NOTE | 2020-04-17 13:19 | NUR ---
REPORT CALLED TO LETICIA JANG ON SURGICAL FLOOR. DAUGHTER IS IN ROOM VISITING. PT TRANSPORTED TO [facility] FLOOR WITH NS RUNNING 100ML/HR AND FLAGYL RUNNING AT 100ML/HR. ALL BELONGINGS TRANSFERED WITH PT
--- NOTE | 2020-04-17 13:30 | NUR ---
PATIENT TRANSFERRED TO ROOM 220 VIA BED FROM PCU. AWAKE. DAUGHTER ACCOMPANYING. PATIENT ORIENTED TO ROOM, CALL LIGHT, ETC. PATIENT STATES SOME NAUSEA AND ABD DISCOMFORT FROM SURGERY. ABD WITH LAP SITES, STERI STRIPS D&I. ILANA DRAIN RLQ WITH SCANT AMOUNT SS DRAINAGE. LS CLEAR. HRR. DENIES SOB, CP. WILL MEDICATE PER ORDER AND CONT TO MONITOR.
--- NOTE | 2020-04-17 18:22 | NUR ---
POD 1 S/P LAP VIVIANA. PT WAS PCU TX TODAY. PT ALERT, DENIES PAIN, EATING DINNER IN BED. LAP SITES CDI, ILANA TO RLQ DRAININ SANG FLUID. EMPTIED 25ML SINCE COMING TO UNIT. PT IS INCONT, ATTENDS WERE CHANGED AND PT REPOSITIONED. NO OTHER CHANGES. CALL LIGHT IN REACH, WILL REPORT OFF TO NEXT SHIFT.
[2020-04-18 04:54] LABS: BASOPHILS ABSOLUTE AUTO 0.04 K/mm3 (0.00-0.23); BASOPHILS PERCENT AUTO 0 % (0-2); EOSINOPHILS ABSOLUTE AUTO 0.22 K/mm3 (0.00-0.68); EOSINOPHILS PERCENT AUTO 2 % (0-6); Hematocrit 35.9 % (33.0-51.0); IMMATURE GRAN ABSOLUTE AUTO 0.08 K/mm3 (0.00-0.10); IMMATURE GRAN PERCENT AUTO 1 % (0-1); LYMPHOCYTES ABSOLUTE AUTO 1.15 K/mm3 (0.84-5.20); LYMPHOCYTES PERCENT AUTO 8 % (21-46); MONOCYTES ABSOLUTE AUTO 1.06 K/mm3 (0.16-1.47); MONOCYTES PERCENT AUTO 8 % (4-13); Mean Corpuscular HGB 27.9 pg (26.0-34.0); Mean Corpuscular HGB Conc 33.4 g/dL (31.5-36.5); Mean Corpuscular Volume 84 fL (80-100); Mean Platelet Volume 10.4 fL (9.1-12.4); NEUTROPHILS ABSOLUTE AUTO 11.53 K/mm3 (1.96-9.15); NEUTROPHILS PERCENT AUTO 82 % (41-73); Platelet Count 182 K/mm3 (150-400); RDW Coefficient Variation 15.8 % (11.7-14.2); RDW Standard Deviation 48.1 fL (35.1-46.3); White Blood Cell Count 14.08 K/mm3 (4.00-11.30)
[2020-04-18 05:22] LABS: Bun/Creatinine Ratio 22.2 (12.0-20.0); Calcium, Blood 7.9 mg/dL (8.5-10.1); Creatinine, Blood 1.35 mg/dL (0.40-1.00); Potassium, Blood 3.1 mmol/L (3.5-5.5)
--- NOTE | 2020-04-18 05:59 | NUR ---
SHIFT SUMMARY POD 2 LAP VIVIANA. PT AAOX3-4. BOWEL SOUNDS ACTIVE, PT DENIES PAIN. 30ML OUT OF ILANA DRAIN, SS DISCHARGE. 3L 02 VIA NC, DENIES SOB. SOME DYSPNEA WITH REPOSITIONING. PLAN TO CONTINUE WITH FLUIDS AND ABX.
[2020-04-18] MEDS ORDERED: LEVO750 PO (13:46)
[2020-04-18] MEDS ORDERED: PROBIOTIC1 EA13 PO (13:47)
--- NOTE | 2020-04-18 15:20 | NUR ---
PATIENT D/C'D TO [facility] AT 1445. REPORT CALLED TO NETTE AT THIS TIME. PATIENT HAS DENIED PAIN. TOLERATING PO. DR GARCIA IN TO SEE; ILANA DRAIN REMOVED AND DRESSING DRY AND INTACT. NO ACUTE CHANGES OR C/O AT THIS TIME.
== END 2020-04-18 14:30 | disposition home or self-care (01) | DRG 853 ==
LOC: ER 09:20 → PCU 14:14 → SURS 04-17 13:21
PROVIDERS: Hospitalist; Physician Assistant; Surgery; ADMIT Internal Medicine
PROC: 0FT44ZZ Resection of Gallbladder, Percutaneous Endoscopic Approach (ICD-10-PCS; principal; 2020-04-16 10:45)
DX: A41.51 Sepsis due to Escherichia coli [E. coli] (principal); G92 Toxic encephalopathy; R65.21 Severe sepsis with septic shock; K80.00 Calculus of gallbladder with acute cholecystitis without obstruction; N39.0 Urinary tract infection, site not specified; N17.9 Acute kidney failure, unspecified; N18.3 Chronic kidney disease, stage 3 (moderate); E11.22 Type 2 diabetes mellitus with diabetic chronic kidney disease; I12.9 Hypertensive chronic kidney disease with stage 1 through stage 4 chronic kidney disease, or unspecified chronic kidney disease; K21.9 Gastro-esophageal reflux disease without esophagitis; W19.XXXA Unspecified fall, initial encounter; E89.0 Postprocedural hypothyroidism; E78.5 Hyperlipidemia, unspecified; Z86.73 Personal history of transient ischemic attack (TIA), and cerebral infarction without residual deficits; Z87.440 Personal history of urinary (tract) infections; Z79.4 Long term (current) use of insulin; Z79.82 Long term (current) use of aspirin; Z79.899 Other long term (current) drug therapy; Z87.891 Personal history of nicotine dependence
CPT/HCPCS: 36415; 70450; 71045; 74176; 80048; 80053; 80069; 81001; 82947; 83605; 85018; 85025; 85610; 87040; 87077; 87086; 87186; 88304; 93005; 93010; 94760; 96361; 96365; 97110; 97162; 97166; 97530; 97535; 99285-25; A9270; A9270-GY; G0480; J1650; J1956; J2370; J2405; J2704; J2765; J3010; J7030; J7120; P9612; U0002

== ENCOUNTER → 2020-05-30 | Outpatient (CLI) | payer MEDICARE, OTHER ==
[~2020-05-30] MED LIST changes: +HUMALOG100 UNIT/1 SC; +Hair, Skin & N1 EACH PO; +PROBIOTIC1 EA13 PO; +TRULICITY1.5 MG/0.1 SC
[2020-05-30 19:11] LABS: Source, Urine Clean Catch
[2020-05-30 19:58] LABS: Appearance, Urine Hazy (Clear); Bilirubin, Urine Neg (Neg); Blood, Urine Neg (Neg); Color, Urine Yellow (P-Yellow); Glucose Qualitative, Urine Neg (Neg); Ketones, Urine Neg (Neg); Leukocyte Esterase, Urine 3+ (Neg); Nitrite, Urine Neg (Neg); Protein, Urine Neg (Neg); Specific Gravity, Urine 1.015 (1.003-1.022); Urobilinogen, Urine NORM (Normal)
[2020-05-30 20:06] LABS: Bacteria Many /hpf; Red Blood Cells, Urine Not Seen /hpf (0-2); Squamous Epithelial Cells Few /hpf (Few)
== END | disposition home or self-care (01) ==
LOC: LAB 19:09 → LAB SHORT 19:09
PROVIDERS: Nurse Practitioner Family
DX: N39.0 Urinary tract infection, site not specified (principal)
CPT/HCPCS: 81001; 87086

== ENCOUNTER → 2020-06-05 | Outpatient (CLI) | payer MEDICARE, OTHER ==
[2020-06-05 15:14] LABS: BASOPHILS ABSOLUTE AUTO 0.07 K/mm3 (0.00-0.23); BASOPHILS PERCENT AUTO 1 % (0-2); EOSINOPHILS ABSOLUTE AUTO 0.84 K/mm3 (0.00-0.68); EOSINOPHILS PERCENT AUTO 10 % (0-6); Hematocrit 42.1 % (33.0-51.0); Hemoglobin 13.8 g/dL (11.5-16.0); IMMATURE GRAN ABSOLUTE AUTO 0.01 K/mm3 (0.00-0.10); IMMATURE GRAN PERCENT AUTO 0 % (0-1); LYMPHOCYTES ABSOLUTE AUTO 2.22 K/mm3 (0.84-5.20); LYMPHOCYTES PERCENT AUTO 26 % (21-46); MONOCYTES ABSOLUTE AUTO 0.72 K/mm3 (0.16-1.47); MONOCYTES PERCENT AUTO 9 % (4-13); Mean Corpuscular HGB 28.5 pg (26.0-34.0); Mean Corpuscular HGB Conc 32.8 g/dL (31.5-36.5); Mean Corpuscular Volume 87 fL (80-100); Mean Platelet Volume 11.2 fL (9.1-12.4); NEUTROPHILS ABSOLUTE AUTO 4.56 K/mm3 (1.96-9.15); NEUTROPHILS PERCENT AUTO 54 % (41-73); Platelet Count 227 K/mm3 (150-400); RDW Coefficient Variation 12.9 % (11.7-14.2); RDW Standard Deviation 40.6 fL (35.1-46.3); Red Blood Cell Count 4.84 M/mm3 (3.80-5.20); White Blood Cell Count 8.42 K/mm3 (4.00-11.30)
[2020-06-05 15:39] LABS: Alanine Aminotransfer (ALT/SGP 149 U/L (12-78); Albumin, Blood 3.5 g/dL (3.4-5.0); Albumin/Globulin Ratio 0.9 (0.8-1.8); Alk Phos 93 U/L (50-136); Anion Gap 9 mmol/L (6-16); Aspartate Aminotrans (AST/SGOT 112 U/L (12-37); Bilirubin, Total 0.4 mg/dL (0.1-1.0); Blood Urea Nitrogen 22 mg/dL (8-24); Bun/Creatinine Ratio 11.5 (12.0-20.0); CHOL/HDL RATIO 4.1; CO2, Blood 24 mmol/L (21-32); Calcium, Blood 9.9 mg/dL (8.5-10.1); Chloride, Blood 105 mmol/L (98-108); Cholesterol 149 mg/dL (50-200); Creatinine, Blood 1.91 mg/dL (0.40-1.00); Glomerular Filtration Rate 28 (60-); Glucose, Blood 97 mg/dL (70-99); HDL Cholesterol 36 mg/dL (>39); LDL/HDL RATIO 1.8; Low Density Lipoprotein Chol 66 mg/dL (0-110); Potassium, Blood 4.3 mmol/L (3.5-5.5); Sodium, Blood 138 mmol/L (136-145); Thyroid Stimulating Hormone 0.044 uIU/mL (0.360-4.800); Total Protein, Blood 7.5 g/dL (6.4-8.2); Triglycerides 235 mg/dL (30-160); Very Low Density Lipoprot Chol 47 mg/dL (6-32)
== END | disposition home or self-care (01) ==
LOC: LAB SHORT 12:59 → PLD 12:59
PROVIDERS: Nurse Practitioner Family
DX: E11.22 Type 2 diabetes mellitus with diabetic chronic kidney disease (principal); N18.3 Chronic kidney disease, stage 3 (moderate); E03.9 Hypothyroidism, unspecified
CPT/HCPCS: 80053; 80061; 83036; 84443; 85025

== ENCOUNTER → 2020-07-29 | Outpatient (CLI) | payer MEDICARE, OTHER ==
[~2020-07-29] MED LIST changes: +TRULICITY1.5 MG/0.1 SQ; +VASCEPA1 G1 PO
[2020-07-29 12:01] LABS: Appearance, Urine Cloudy (Clear); Bilirubin, Urine Neg (Neg); Blood, Urine 2+ (Neg); Color, Urine Yellow (P-Yellow); Glucose Qualitative, Urine 2+ (Neg); Ketones, Urine Neg (Neg); Leukocyte Esterase, Urine 3+ (Neg); Nitrite, Urine Neg (Neg); Protein, Urine 2+ (Neg); Specific Gravity, Urine 1.015 (1.003-1.022); Urobilinogen, Urine NORM (Normal)
[2020-07-29 12:19] LABS: White Blood Cells, Urine TNTC /hpf (0-5)
[2020-07-29 12:21] LABS: Bacteria Many /hpf; Squamous Epithelial Cells Few /hpf (Few)
== END | disposition home or self-care (01) ==
LOC: LAB SHORT 09:42 → LAB 09:42
PROVIDERS: Nurse Practitioner Family
DX: N39.0 Urinary tract infection, site not specified (principal)
CPT/HCPCS: 81001; 87077; 87086; 87186

== ENCOUNTER → 2020-07-31 | Outpatient (CLI) | payer MEDICARE, OTHER ==
[2020-07-31 20:07] LABS: Free Thyroxine 2.2 ng/dL (0.70-1.60); Thyroid Stimulating Hormone 0.021 uIU/mL (0.360-4.800); Triiodothyronine, Free 2.24 pg/mL (2.18-3.98)
== END ==
LOC: LAB 15:11 → LAB SHORT 15:11
PROVIDERS: Nurse Practitioner Family
DX: E03.9 Hypothyroidism, unspecified (principal)
CPT/HCPCS: 84439; 84443; 84481

== ENCOUNTER 2020-08-13 16:41 | Emergency (ER) | payer MEDICARE, OTHER ==
[~2020-08-13] VITALS: Ht 162.6 cm; Wt 81.7 kg
[~2020-08-13 16:41] MED LIST changes: -TRULICITY1.5 MG/0.1 SQ; -VASCEPA1 G1 PO
[2020-08-13 18:00] LABS: Source, Urine Catheter
[2020-08-13] MEDS ORDERED: ASCO500 PO (18:08)
[2020-08-13] MEDS ORDERED: VASCEPA1 G1 PO (18:08)
[2020-08-13] MEDS ORDERED: TRULICITY1.5 MG/0.1 SQ (18:08)
[2020-08-13 18:15] LABS: Appearance, Urine Clear (Clear); Bilirubin, Urine Neg (Neg); Blood, Urine Neg (Neg); Color, Urine Yellow (P-Yellow); Glucose Qualitative, Urine Neg (Neg); Ketones, Urine Neg (Neg); Leukocyte Esterase, Urine 1+ (Neg); Nitrite, Urine Neg (Neg); Protein, Urine Neg (Neg); Urobilinogen, Urine 2+ (Normal); pH, Urine 6.5 (5.0-8.0)
[2020-08-13 18:15] LABS: BASOPHILS ABSOLUTE AUTO 0.08 K/mm3 (0.00-0.23); BASOPHILS PERCENT AUTO 1 % (0-2); EOSINOPHILS ABSOLUTE AUTO 0.47 K/mm3 (0.00-0.68); EOSINOPHILS PERCENT AUTO 5 % (0-6); Hematocrit 48.3 % (33.0-51.0); Hemoglobin 16.1 g/dL (11.5-16.0); IMMATURE GRAN ABSOLUTE AUTO 0.01 K/mm3 (0.00-0.10); IMMATURE GRAN PERCENT AUTO 0 % (0-1); LYMPHOCYTES ABSOLUTE AUTO 2.78 K/mm3 (0.84-5.20); LYMPHOCYTES PERCENT AUTO 31 % (21-46); MONOCYTES ABSOLUTE AUTO 0.71 K/mm3 (0.16-1.47); MONOCYTES PERCENT AUTO 8 % (4-13); Mean Corpuscular HGB 28.5 pg (26.0-34.0); Mean Corpuscular HGB Conc 33.3 g/dL (31.5-36.5); Mean Corpuscular Volume 86 fL (80-100); Mean Platelet Volume 10.1 fL (9.1-12.4); NEUTROPHILS PERCENT AUTO 55 % (41-73); Platelet Count 237 K/mm3 (150-400); RDW Coefficient Variation 13.9 % (11.7-14.2); RDW Standard Deviation 43.3 fL (35.1-46.3); Red Blood Cell Count 5.65 M/mm3 (3.80-5.20); White Blood Cell Count 8.95 K/mm3 (4.00-11.30)
[2020-08-13 18:30] LABS: International Normalized Ratio 1.04; Prothrombin Time Results 11.1 Sec (9.7-11.5)
[2020-08-13 18:31] LABS: Bacteria Few /hpf; Red Blood Cells, Urine 0-2 /hpf (0-2); Squamous Epithelial Cells Few /hpf (Few); White Blood Cells, Urine 0-2 /hpf (0-5)
[2020-08-13 18:36] LABS: U Amphetamine Screen Not Detected; U Barbituate Screen Not Detected; U Benzodiazapine Screen Not Detected; U Buprenorphine Screen Not Detected; U Cannabinoids Screen Not Detected; U Cocaine Screen Not Detected; U Methadone Screen Not Detected; U Methamphetamine Screen Not Detected; U Opiates Screen Not Detected; U Oxycodone Screen Not Detected; U Phencyclidine Screen Not Detected; U Propoxyphene Screen Not Detected
[2020-08-13 18:39] LABS: Alanine Aminotransfer (ALT/SGP 412 U/L (12-78); Albumin, Blood 3.7 g/dL (3.4-5.0); Albumin/Globulin Ratio 0.9 (0.8-1.8); Alk Phos 125 U/L (50-136); Anion Gap 9 mmol/L (6-16); Aspartate Aminotrans (AST/SGOT 269 U/L (12-37); Blood Urea Nitrogen 17 mg/dL (8-24); Bun/Creatinine Ratio 13.8 (12.0-20.0); CO2, Blood 23 mmol/L (21-32); Calcium, Blood 10.2 mg/dL (8.5-10.1); Chloride, Blood 112 mmol/L (98-108); Creatinine, Blood 1.23 mg/dL (0.40-1.00); Ethanol (Alcohol), Blood, Med <3 mg/dL; Globulin, Blood 4.3 g/dL (2.2-4.0); Glomerular Filtration Rate 46 (60-); Glucose, Blood 114 mg/dL (70-99); Potassium, Blood 4.3 mmol/L (3.5-5.5); Sodium, Blood 144 mmol/L (136-145)
[2020-08-13 21:30] LABS: Thyroid Stimulating Hormone 0.012 uIU/mL (0.360-4.800)
== END 2020-08-13 23:40 | disposition home or self-care (01) ==
LOC: ER 16:41
PROVIDERS: Emergency Medicine
DX: R41.82 Altered mental status, unspecified (principal); R74.01 Elevation of levels of liver transaminase levels; R94.6 Abnormal results of thyroid function studies; I12.9 Hypertensive chronic kidney disease with stage 1 through stage 4 chronic kidney disease, or unspecified chronic kidney disease; E11.22 Type 2 diabetes mellitus with diabetic chronic kidney disease; N18.30 Chronic kidney disease, stage 3 unspecified; E78.5 Hyperlipidemia, unspecified; K21.9 Gastro-esophageal reflux disease without esophagitis; I25.10 Atherosclerotic heart disease of native coronary artery without angina pectoris; F32.9 Major depressive disorder, single episode, unspecified; E03.9 Hypothyroidism, unspecified; Z79.899 Other long term (current) drug therapy; Z79.4 Long term (current) use of insulin; Z79.82 Long term (current) use of aspirin; Z88.1 Allergy status to other antibiotic agents
CPT/HCPCS: 36415; 51701; 70450; 71046; 74177; 80053; 81001; 82947; 84443; 85025; 85610; 93005; 93010; 99285-25; G0480; Q9967

== ENCOUNTER 2020-08-26 16:40 | Emergency (ER) | payer MEDICARE, OTHER ==
[~2020-08-26] VITALS: Ht 165.1 cm; Wt 81.7 kg
[~2020-08-26 16:40] MED LIST changes: +TRULICITY1.5 MG/0.1 SQ; +VASCEPA1 G1 PO
[2020-08-26 18:13] LABS: Source, Urine Catheter
[2020-08-26 18:27] LABS: BASOPHILS ABSOLUTE AUTO 0.11 K/mm3 (0.00-0.23); BASOPHILS PERCENT AUTO 1 % (0-2); EOSINOPHILS ABSOLUTE AUTO 0.56 K/mm3 (0.00-0.68); EOSINOPHILS PERCENT AUTO 6 % (0-6); Hematocrit 46.2 % (33.0-51.0); Hemoglobin 15.2 g/dL (11.5-16.0); IMMATURE GRAN ABSOLUTE AUTO 0.01 K/mm3 (0.00-0.10); IMMATURE GRAN PERCENT AUTO 0 % (0-1); LYMPHOCYTES ABSOLUTE AUTO 2.61 K/mm3 (0.84-5.20); LYMPHOCYTES PERCENT AUTO 29 % (21-46); MONOCYTES ABSOLUTE AUTO 0.81 K/mm3 (0.16-1.47); MONOCYTES PERCENT AUTO 9 % (4-13); Mean Corpuscular HGB 28.4 pg (26.0-34.0); Mean Corpuscular HGB Conc 32.9 g/dL (31.5-36.5); Mean Corpuscular Volume 86 fL (80-100); Mean Platelet Volume 10.6 fL (9.1-12.4); NEUTROPHILS ABSOLUTE AUTO 4.86 K/mm3 (1.96-9.15); NEUTROPHILS PERCENT AUTO 54 % (41-73); Platelet Count 197 K/mm3 (150-400); RDW Coefficient Variation 13.9 % (11.7-14.2); RDW Standard Deviation 44.4 fL (35.1-46.3); Red Blood Cell Count 5.36 M/mm3 (3.80-5.20); White Blood Cell Count 8.96 K/mm3 (4.00-11.30)
[2020-08-26 18:46] LABS: Alanine Aminotransfer (ALT/SGP 450 U/L (12-78); Albumin, Blood 3.3 g/dL (3.4-5.0); Albumin/Globulin Ratio 0.8 (0.8-1.8); Alk Phos 117 U/L (50-136); Anion Gap 8 mmol/L (6-16); Aspartate Aminotrans (AST/SGOT 310 U/L (12-37); Bilirubin, Total 0.9 mg/dL (0.1-1.0); Blood Urea Nitrogen 15 mg/dL (8-24); Bun/Creatinine Ratio 13.9 (12.0-20.0); CO2, Blood 26 mmol/L (21-32); Calcium, Blood 9.8 mg/dL (8.5-10.1); Chloride, Blood 109 mmol/L (98-108); Creatinine, Blood 1.08 mg/dL (0.40-1.00); Globulin, Blood 4.1 g/dL (2.2-4.0); Glomerular Filtration Rate 54 (60-); Glucose, Blood 118 mg/dL (70-99); Potassium, Blood 3.7 mmol/L (3.5-5.5); Sodium, Blood 143 mmol/L (136-145); Thyroid Stimulating Hormone 0.034 uIU/mL (0.360-4.800); Total Protein, Blood 7.4 g/dL (6.4-8.2); Troponin I <0.015 ng/mL (0.000-0.040)
[2020-08-26 19:19] LABS: Bilirubin, Urine Neg (Neg); Blood, Urine Neg (Neg); Glucose Qualitative, Urine Neg (Neg); Ketones, Urine Neg (Neg); Leukocyte Esterase, Urine 2+ (Neg); Nitrite, Urine Neg (Neg); Protein, Urine Neg (Neg); Urobilinogen, Urine 1+ (Normal)
[2020-08-26 19:20] LABS: Appearance, Urine Hazy (Clear); Color, Urine Yellow (P-Yellow)
[2020-08-26 19:21] LABS: Bacteria Few /hpf; Red Blood Cells, Urine 0-2 /hpf (0-2); Squamous Epithelial Cells Few /hpf (Few)
== END 2020-08-26 20:41 | disposition home or self-care (01) ==
LOC: ER 16:40
PROVIDERS: Emergency Medicine
DX: F03.90 Unspecified dementia, unspecified severity, without behavioral disturbance, psychotic disturbance, mood disturbance, and anxiety (principal); I12.9 Hypertensive chronic kidney disease with stage 1 through stage 4 chronic kidney disease, or unspecified chronic kidney disease; E11.22 Type 2 diabetes mellitus with diabetic chronic kidney disease; N18.30 Chronic kidney disease, stage 3 unspecified; E03.9 Hypothyroidism, unspecified; E78.5 Hyperlipidemia, unspecified; K21.9 Gastro-esophageal reflux disease without esophagitis; F32.9 Major depressive disorder, single episode, unspecified; I25.10 Atherosclerotic heart disease of native coronary artery without angina pectoris; Z79.4 Long term (current) use of insulin; Z79.899 Other long term (current) drug therapy; Z79.82 Long term (current) use of aspirin; Z88.1 Allergy status to other antibiotic agents; Z86.73 Personal history of transient ischemic attack (TIA), and cerebral infarction without residual deficits
CPT/HCPCS: 36415; 51701; 80053; 81001; 84443; 84484; 85025; 87086; 93005; 93010; 99285-25

== ENCOUNTER → 2020-09-12 | Outpatient (CLI) | payer MEDICARE, OTHER ==
[~2020-09-12] MED LIST changes: +Bactrim Ds Tab1 EACH PO
[2020-09-12 19:28] LABS: Albumin, Blood 3.6 g/dL (3.4-5.0); Anion Gap 7 mmol/L (6-16); Blood Urea Nitrogen 19 mg/dL (8-24); Bun/Creatinine Ratio 15.1 (12.0-20.0); CO2, Blood 26 mmol/L (21-32); Calcium, Blood 10.3 mg/dL (8.5-10.1); Chloride, Blood 105 mmol/L (98-108); Creatinine, Blood 1.26 mg/dL (0.40-1.00); Glomerular Filtration Rate 45 (60-); Glucose, Blood 189 mg/dL (70-99); Phosphorus, Blood 2.6 mg/dL (2.5-4.9); Potassium, Blood 4.3 mmol/L (3.5-5.5); Sodium, Blood 138 mmol/L (136-145)
== END | disposition home or self-care (01) ==
LOC: LAB 13:07
PROVIDERS: Internal Medicine Nephrology
DX: N18.30 Chronic kidney disease, stage 3 unspecified (principal); D63.1 Anemia in chronic kidney disease
CPT/HCPCS: 80069

== ENCOUNTER 2020-09-30 14:10 | Emergency (ER) | payer MEDICARE, OTHER ==
[~2020-09-30] VITALS: Ht 154.9 cm; Wt 74.8 kg
[~2020-09-30 14:10] MED LIST changes: -Bactrim Ds Tab1 EACH PO
== END 2020-09-30 15:40 | disposition home or self-care (01) ==
LOC: ER 14:10
DX: M72.2 Plantar fascial fibromatosis (principal); M77.11 Lateral epicondylitis, right elbow; I10 Essential (primary) hypertension; E11.9 Type 2 diabetes mellitus without complications; E78.00 Pure hypercholesterolemia, unspecified; E03.9 Hypothyroidism, unspecified; Z79.4 Long term (current) use of insulin; Z79.82 Long term (current) use of aspirin; Z86.73 Personal history of transient ischemic attack (TIA), and cerebral infarction without residual deficits; Z79.899 Other long term (current) drug therapy; Z87.891 Personal history of nicotine dependence
CPT/HCPCS: 96372; 99283-25; J1885

== ENCOUNTER → 2020-10-21 | Outpatient (CLI) | payer MEDICARE, OTHER ==
[~2020-10-21] MED LIST changes: +Bactrim Ds Tab1 EACH PO
[2020-10-21 20:03] LABS: Albumin, Blood 3.5 g/dL (3.4-5.0); Anion Gap 10 mmol/L (6-16); Blood Urea Nitrogen 21 mg/dL (8-24); Bun/Creatinine Ratio 18.9 (12.0-20.0); CO2, Blood 25 mmol/L (21-32); Calcium, Blood 9.5 mg/dL (8.5-10.1); Chloride, Blood 104 mmol/L (98-108); Creatinine, Blood 1.11 mg/dL (0.40-1.00); Glomerular Filtration Rate 52 (60-); Glucose, Blood 269 mg/dL (70-99); Phosphorus, Blood 2.9 mg/dL (2.5-4.9); Potassium, Blood 4.3 mmol/L (3.5-5.5); Sodium, Blood 139 mmol/L (136-145)
[2020-10-21 20:13] LABS: Free Thyroxine 1.8 ng/dL (0.70-1.60); Thyroid Stimulating Hormone 0.021 uIU/mL (0.360-4.800); Thyroxine (T4) 18.4 ug/dL (4.8-13.9); Triiodothyronine, Free 2.04 pg/mL (2.18-3.98)
== END | disposition home or self-care (01) ==
LOC: LAB SHORT 19:01 → LAB 19:01
PROVIDERS: Internal Medicine Nephrology
DX: N18.30 Chronic kidney disease, stage 3 unspecified (principal); D63.1 Anemia in chronic kidney disease; N25.81 Secondary hyperparathyroidism of renal origin; E55.9 Vitamin D deficiency, unspecified; E78.00 Pure hypercholesterolemia, unspecified; R76.9 Abnormal immunological finding in serum, unspecified; R94.5 Abnormal results of liver function studies; G60.9 Hereditary and idiopathic neuropathy, unspecified; E03.9 Hypothyroidism, unspecified
CPT/HCPCS: 80069; 84436; 84439; 84443; 84481; 85018

== ENCOUNTER 2020-11-05 13:11 | Emergency (ER) | payer MEDICARE, OTHER ==
[~2020-11-05] VITALS: Ht 154.9 cm; Wt 86.2 kg
[~2020-11-05 13:11] MED LIST changes: -Bactrim Ds Tab1 EACH PO
== END 2020-11-05 14:21 | disposition home or self-care (01) ==
LOC: ER 13:11
DX: M79.671 Pain in right foot (principal); Z79.4 Long term (current) use of insulin; Z79.899 Other long term (current) drug therapy; Z79.82 Long term (current) use of aspirin; Z88.1 Allergy status to other antibiotic agents
CPT/HCPCS: 73630; 99283-25; A9270

== ENCOUNTER 2020-12-01 08:59 | Emergency (ER) | payer MEDICARE, OTHER ==
[~2020-12-01] VITALS: Ht 162.6 cm; Wt 90.7 kg
== END 2020-12-01 09:31 | disposition home or self-care (01) ==
LOC: ER 08:59
DX: M79.671 Pain in right foot (principal); E78.5 Hyperlipidemia, unspecified; I12.9 Hypertensive chronic kidney disease with stage 1 through stage 4 chronic kidney disease, or unspecified chronic kidney disease; I25.10 Atherosclerotic heart disease of native coronary artery without angina pectoris; E03.9 Hypothyroidism, unspecified; E11.22 Type 2 diabetes mellitus with diabetic chronic kidney disease; N18.30 Chronic kidney disease, stage 3 unspecified; Z87.891 Personal history of nicotine dependence; Z79.4 Long term (current) use of insulin; Z79.82 Long term (current) use of aspirin; Z79.899 Other long term (current) drug therapy; Z86.73 Personal history of transient ischemic attack (TIA), and cerebral infarction without residual deficits
CPT/HCPCS: 99283; A9270

== ENCOUNTER 2021-02-10 15:02 | Emergency (ER) | payer MEDICARE, OTHER ==
[~2021-02-10] VITALS: Ht 167.6 cm; Wt 65.8 kg
[2021-02-10 15:55] LABS: BASOPHILS ABSOLUTE AUTO 0.09 K/mm3 (0.00-0.23); BASOPHILS PERCENT AUTO 1 % (0-2); EOSINOPHILS ABSOLUTE AUTO 0.65 K/mm3 (0.00-0.68); EOSINOPHILS PERCENT AUTO 6 % (0-6); Hematocrit 40.6 % (33.0-51.0); Hemoglobin 14.2 g/dL (11.5-16.0); IMMATURE GRAN ABSOLUTE AUTO 0.03 K/mm3 (0.00-0.10); IMMATURE GRAN PERCENT AUTO 0 % (0-1); LYMPHOCYTES ABSOLUTE AUTO 3.23 K/mm3 (0.84-5.20); LYMPHOCYTES PERCENT AUTO 29 % (21-46); MONOCYTES ABSOLUTE AUTO 0.94 K/mm3 (0.16-1.47); MONOCYTES PERCENT AUTO 8 % (4-13); Mean Corpuscular HGB 30.5 pg (26.0-34.0); Mean Corpuscular Volume 87 fL (80-100); Mean Platelet Volume 10.6 fL (9.1-12.4); NEUTROPHILS ABSOLUTE AUTO 6.21 K/mm3 (1.96-9.15); NEUTROPHILS PERCENT AUTO 56 % (41-73); Platelet Count 223 K/mm3 (150-400); RDW Coefficient Variation 11.9 % (11.7-14.2); RDW Standard Deviation 37.8 fL (35.1-46.3); Red Blood Cell Count 4.66 M/mm3 (3.80-5.20); White Blood Cell Count 11.15 K/mm3 (4.00-11.30)
[2021-02-10 16:14] LABS: Source, Urine Clean Catch
[2021-02-10 16:21] LABS: Alanine Aminotransfer (ALT/SGP 75 U/L (12-78); Albumin, Blood 3.6 g/dL (3.4-5.0); Albumin/Globulin Ratio 0.9 (0.8-1.8); Alk Phos 89 U/L (50-136); Anion Gap 6 mmol/L (6-16); Aspartate Aminotrans (AST/SGOT 56 U/L (12-37); Bilirubin, Total 0.5 mg/dL (0.1-1.0); Blood Urea Nitrogen 27 mg/dL (8-24); Bun/Creatinine Ratio 21.1 (12.0-20.0); CO2, Blood 28 mmol/L (21-32); Calcium, Blood 9.5 mg/dL (8.5-10.1); Chloride, Blood 105 mmol/L (98-108); Creatinine, Blood 1.28 mg/dL (0.40-1.00); Globulin, Blood 4.1 g/dL (2.2-4.0); Glomerular Filtration Rate 44 (60-); Glucose, Blood 93 mg/dL (70-99); Potassium, Blood 4.2 mmol/L (3.5-5.5); Sodium, Blood 139 mmol/L (136-145); Total Protein, Blood 7.7 g/dL (6.4-8.2); Troponin I <0.015 ng/mL (0.000-0.040)
[2021-02-10 16:27] LABS: Appearance, Urine Clear (Clear); Bilirubin, Urine Neg (Neg); Blood, Urine 2+ (Neg); Color, Urine Yellow (P-Yellow); Glucose Qualitative, Urine Neg (Neg); Ketones, Urine Neg (Neg); Leukocyte Esterase, Urine 1+ (Neg); Nitrite, Urine Neg (Neg); Protein, Urine Neg (Neg); Specific Gravity, Urine 1.015 (1.003-1.022); Urobilinogen, Urine NORM (Normal)
[2021-02-10 17:11] LABS: Bacteria Mod /hpf; Mucus Light (0-Heavy); Squamous Epithelial Cells Few /hpf (Few)
[2021-02-10 17:12] LABS: Amorphous Light (0-Heavy)
[2021-02-10] MEDS ORDERED: Bactrim Ds Tab1 EACH PO (17:26)
== END 2021-02-10 19:00 | disposition home or self-care (01) ==
LOC: ER 15:02
PROVIDERS: Emergency Medicine
DX: N39.0 Urinary tract infection, site not specified (principal); E03.9 Hypothyroidism, unspecified; E11.22 Type 2 diabetes mellitus with diabetic chronic kidney disease; N18.30 Chronic kidney disease, stage 3 unspecified; I25.10 Atherosclerotic heart disease of native coronary artery without angina pectoris; K21.9 Gastro-esophageal reflux disease without esophagitis; E78.5 Hyperlipidemia, unspecified; Z79.4 Long term (current) use of insulin; Z79.899 Other long term (current) drug therapy; Z88.1 Allergy status to other antibiotic agents
CPT/HCPCS: 51702; 80053; 81001; 82947; 83690; 84484; 85025; 87086; 93005; 93010; 99284-25; A9270

== ENCOUNTER 2021-10-02 10:24 | Observation (INO) | payer MEDICARE, OTHER ==
[~2021-10-02] VITALS: Ht 167.6 cm; Wt 65.8 kg
[~2021-10-02 10:24] MED LIST changes: +Bactrim Ds Tab1 EACH PO
[2021-10-02 11:08] LABS: Source, Urine Catheter
[2021-10-02 11:18] LABS: Appearance, Urine Hazy (Clear); Bilirubin, Urine Neg (Neg); Blood, Urine Neg (Neg); Color, Urine Yellow (P-Yellow); Glucose Qualitative, Urine Neg (Neg); Ketones, Urine Neg (Neg); Leukocyte Esterase, Urine 3+ (Neg); Nitrite, Urine Neg (Neg); Protein, Urine Neg (Neg); Specific Gravity, Urine 1.015 (1.003-1.022); Urobilinogen, Urine NORM (Normal)
[2021-10-02 11:22] LABS: BASOPHILS ABSOLUTE AUTO 0.08 K/mm3 (0.00-0.23); BASOPHILS PERCENT AUTO 1 % (0-2); EOSINOPHILS ABSOLUTE AUTO 0.72 K/mm3 (0.00-0.68); EOSINOPHILS PERCENT AUTO 8 % (0-6); Hematocrit 40.4 % (33.0-51.0); Hemoglobin 13.9 g/dL (11.5-16.0); IMMATURE GRAN ABSOLUTE AUTO 0.02 K/mm3 (0.00-0.10); IMMATURE GRAN PERCENT AUTO 0 % (0-1); LYMPHOCYTES ABSOLUTE AUTO 1.83 K/mm3 (0.84-5.20); LYMPHOCYTES PERCENT AUTO 19 % (21-46); MONOCYTES ABSOLUTE AUTO 0.69 K/mm3 (0.16-1.47); MONOCYTES PERCENT AUTO 7 % (4-13); Mean Corpuscular HGB 29.4 pg (26.0-34.0); Mean Corpuscular HGB Conc 34.4 g/dL (31.5-36.5); Mean Corpuscular Volume 86 fL (80-100); Mean Platelet Volume 10.2 fL (9.1-12.4); NEUTROPHILS ABSOLUTE AUTO 6.23 K/mm3 (1.96-9.15); NEUTROPHILS PERCENT AUTO 65 % (41-73); Platelet Count 210 K/mm3 (150-400); RDW Coefficient Variation 12.3 % (11.7-14.2); RDW Standard Deviation 38.5 fL (35.1-46.3); Red Blood Cell Count 4.72 M/mm3 (3.80-5.20); White Blood Cell Count 9.57 K/mm3 (4.00-11.30)
[2021-10-02 11:39] LABS: Alanine Aminotransfer (ALT/SGP 25 U/L (12-78); Albumin, Blood 3.2 g/dL (3.4-5.0); Albumin/Globulin Ratio 0.9 (0.8-1.8); Alk Phos 72 U/L (50-136); Anion Gap 7 mmol/L (6-16); Aspartate Aminotrans (AST/SGOT 21 U/L (12-37); Bilirubin, Total 0.6 mg/dL (0.1-1.0); Blood Urea Nitrogen 19 mg/dL (8-24); Bun/Creatinine Ratio 15.3 (12.0-20.0); CO2, Blood 24 mmol/L (21-32); Calcium, Blood 9.8 mg/dL (8.5-10.1); Chloride, Blood 109 mmol/L (98-108); Creatinine, Blood 1.24 mg/dL (0.40-1.00); Globulin, Blood 3.6 g/dL (2.2-4.0); Glomerular Filtration Rate 43 (60-); Glucose, Blood 130 mg/dL (70-99); Potassium, Blood 4.2 mmol/L (3.5-5.5); Sodium, Blood 140 mmol/L (136-145); Total Protein, Blood 6.8 g/dL (6.4-8.2); Troponin I <0.015 ng/mL (0.000-0.040)
[2021-10-02 11:45] LABS: Bacteria Many /hpf; Red Blood Cells, Urine 0-2 /hpf (0-2); Squamous Epithelial Cells Rare /hpf (Few)
[2021-10-02 11:46] LABS: Amorphous Light (0-Heavy); WBC Cast 0-2 /lpf (0)
[2021-10-02 12:16] LABS: Influenza A, PCR NEGATIVE (NEGATIVE); Influenza B, PCR NEGATIVE (NEGATIVE); Resp Syncytial Virus, PCR NEGATIVE (NEGATIVE); SARS-Cov-2 (COVID-19) PCR, MMC NEGATIVE (NEGATIVE)
[2021-10-02 12:38] LABS: Free Thyroxine 1.22 ng/dL (0.70-1.60); Thyroid Stimulating Hormone 0.069 uIU/mL (0.360-4.800)
--- NOTE | 2021-10-02 17:14 | NUR ---
SHIFT SUMMARY PATIENT ADMITTED FROM ER AT 1540. PATIENT SETTLED INTO ROOM. PATIENT IS AO 2-3, PATIENT HAS HX OF DEMENTIA AND SEIZURES. OT EVALUATED PATIENT, PATIENT SBA TO BATHROOM WITH FWW. PATIENT IS EATING AND DRINKING WELL. HEAD MRI COMPLETE. PATIENT IS PLEASANT AND COOPERATIVE WITH CARE.
--- NOTE | 2021-10-03 04:30 | NUR ---
PATIENT WAS ALERT AND ORIENTED X2, STABLE VITAL SIGNS, NO ACUTE CHANGES. PATIENT DENIES ANUT PAIN. PATIENT SLEPT FOR MOST OF THE NIGHT. CALL LIGHT WITHIN REACH AND BED DOWN TO THE LOWEST POSTION. WILL CONTINUE TO MONITOR UNTIL HAND OFF.
[2021-10-03 05:05] LABS: BASOPHILS ABSOLUTE AUTO 0.05 K/mm3 (0.00-0.23); BASOPHILS PERCENT AUTO 1 % (0-2); EOSINOPHILS ABSOLUTE AUTO 0.72 K/mm3 (0.00-0.68); EOSINOPHILS PERCENT AUTO 9 % (0-6); Hematocrit 41.5 % (33.0-51.0); Hemoglobin 14.4 g/dL (11.5-16.0); IMMATURE GRAN ABSOLUTE AUTO 0.02 K/mm3 (0.00-0.10); IMMATURE GRAN PERCENT AUTO 0 % (0-1); LYMPHOCYTES ABSOLUTE AUTO 2.43 K/mm3 (0.84-5.20); LYMPHOCYTES PERCENT AUTO 30 % (21-46); MONOCYTES ABSOLUTE AUTO 0.75 K/mm3 (0.16-1.47); MONOCYTES PERCENT AUTO 9 % (4-13); Mean Corpuscular HGB 29.5 pg (26.0-34.0); Mean Corpuscular HGB Conc 34.7 g/dL (31.5-36.5); Mean Corpuscular Volume 85 fL (80-100); NEUTROPHILS ABSOLUTE AUTO 4.09 K/mm3 (1.96-9.15); NEUTROPHILS PERCENT AUTO 51 % (41-73); Platelet Count 197 K/mm3 (150-400); RDW Coefficient Variation 12.3 % (11.7-14.2); Red Blood Cell Count 4.88 M/mm3 (3.80-5.20); White Blood Cell Count 8.06 K/mm3 (4.00-11.30)
[2021-10-03 06:10] LABS: Bun/Creatinine Ratio 20.8 (12.0-20.0); Calcium, Blood 9.8 mg/dL (8.5-10.1); Creatinine, Blood 1.2 mg/dL (0.40-1.00); Potassium, Blood 4.2 mmol/L (3.5-5.5)
[2021-10-03] MEDS ORDERED: ESCI10 PO (12:55)
[2021-10-03] MEDS ORDERED: INSULANI SC (12:56)
[2021-10-03] MEDS ORDERED: ONDA4 PO (12:57)
[2021-10-03] MEDS ORDERED: Fleet Enema132 ML PR (12:57)
[2021-10-03] MEDS ORDERED: MIRALAX17 GM PO (12:57)
[2021-10-03] MEDS ORDERED: ACET500 PO (12:57)
[2021-10-03] MEDS ORDERED: BISA10S PR (12:57)
[2021-10-03 14:56] LABS: CHOL/HDL RATIO 2.6; Cholesterol 125 mg/dL (50-200); HDL Cholesterol 49 mg/dL (>39); LDL/HDL RATIO 1.1; Low Density Lipoprotein Chol 53 mg/dL (0-110); Prolactin 9.8 ng/mL (2.74-19.64); Triglycerides 114 mg/dL (30-160); Very Low Density Lipoprot Chol 22 mg/dL (6-32)
[2021-10-03 14:57] LABS: Triiodothyronine, Free 2.04 pg/mL (2.18-3.98)
--- NOTE | 2021-10-03 17:20 | NUR ---
SHIFT SUMMARY PT AxOx3-4 WITH INTERMITTENT CONFUSION. PT SEEMED LESS CONFUSED THE DAY PROGRESSED. SPEECH EVAL AND PT EVAL TODAY. PT HAS EXPRESSIVE APHASIA OR TRANSCORTICAL APHASIA. PT WILL RESPOND SLOWLY AND SHORT IF GIVEN THE PATIENCE. [facility] SOFT D/T DIFFICULTY SWALLOWING. PT 1 ASSIST WITH FWW. BED ALARM ON FOR IMPULISIVITY. PT PLEASANT AND COOPERATIVE WITH CARE. DAUGHTER, CALEB IN FOR VISIT, UPDATED ON PLAN. PT WILL GET EEG ON WEDNESDAY. PT CURRENTLY RESTING IN CHAIR EATING DINNER. CALL LIGHT IN REACH. PT DENIES ANY NEEDS AT THIS TIME.
--- NOTE | 2021-10-04 04:36 | NUR ---
SHIFT SUMMARY PT AOX2 UNSURE OF DATE/EVENT AND HAS EXPRESSIVE APHASIA WITH DELAYED RESPONSES. PT PLEASANT AND COOPERATIVE AT TIMES BUT EASY TO REDIRECT. BED ALARM SET FOR SAFETY AND STAFF HAS EDUCATED THE PT ON USING THE WALKER SEVERAL TIMES THIS SHIFT. PT HAS RESTED SOME THIS SHIFT WITHOUT S/S OF DISTRESS AND CURRENTLY AWAKE IN BED WATCHING TV. PT DENIES ANY NEEDS AT THE MOMENT AND THIS NURSE WILL CONTINUE TO MONITOR UNTIL REPORT IS GIVEN.
[2021-10-04 05:41] LABS: BASOPHILS ABSOLUTE AUTO 0.05 K/mm3 (0.00-0.23); BASOPHILS PERCENT AUTO 1 % (0-2); EOSINOPHILS ABSOLUTE AUTO 0.79 K/mm3 (0.00-0.68); EOSINOPHILS PERCENT AUTO 11 % (0-6); Hematocrit 40.4 % (33.0-51.0); Hemoglobin 13.9 g/dL (11.5-16.0); IMMATURE GRAN ABSOLUTE AUTO 0.01 K/mm3 (0.00-0.10); IMMATURE GRAN PERCENT AUTO 0 % (0-1); LYMPHOCYTES ABSOLUTE AUTO 2.76 K/mm3 (0.84-5.20); LYMPHOCYTES PERCENT AUTO 39 % (21-46); MONOCYTES ABSOLUTE AUTO 0.71 K/mm3 (0.16-1.47); MONOCYTES PERCENT AUTO 10 % (4-13); Mean Corpuscular HGB 29.3 pg (26.0-34.0); Mean Corpuscular HGB Conc 34.4 g/dL (31.5-36.5); Mean Corpuscular Volume 85 fL (80-100); Mean Platelet Volume 10.4 fL (9.1-12.4); NEUTROPHILS ABSOLUTE AUTO 2.84 K/mm3 (1.96-9.15); NEUTROPHILS PERCENT AUTO 40 % (41-73); Platelet Count 181 K/mm3 (150-400); RDW Coefficient Variation 12.1 % (11.7-14.2); RDW Standard Deviation 37.7 fL (35.1-46.3); Red Blood Cell Count 4.74 M/mm3 (3.80-5.20); White Blood Cell Count 7.16 K/mm3 (4.00-11.30)
[2021-10-04 06:48] LABS: Albumin, Blood 3.1 g/dL (3.4-5.0); Anion Gap 8 mmol/L (6-16); Blood Urea Nitrogen 24 mg/dL (8-24); Bun/Creatinine Ratio 20.3 (12.0-20.0); CO2, Blood 24 mmol/L (21-32); Chloride, Blood 109 mmol/L (98-108); Creatinine, Blood 1.18 mg/dL (0.40-1.00); Glomerular Filtration Rate 46 (60-); Glucose, Blood 82 mg/dL (70-99); Potassium, Blood 4.2 mmol/L (3.5-5.5); Sodium, Blood 141 mmol/L (136-145)
--- NOTE | 2021-10-04 17:39 | NUR ---
SHIFT SUMMARY PT AXO TO SELF, PLACE, FOLLOWING DIRECTIONS. UP WITH 1 ASSIST. HAS R FACIAL DROOP. DR ALEXANDRE ASKED THIS NURSE TO [facility], IF THEY WOULD TAKE PATIENT BACK OVER THE WEEKEND. THEY DECLINED, DR ALEXANDRE AWARE. EEG COMPLETED THIS SHIFT. PT 1:1 SUPERVISED EATING AND UP TO CHAIR FOR MEALS. NO ACUTE CHANGES THIS SHIFT. BED IN LOW POSITION, CALL LIGHT WITHIN REACH. TELE DC'D. IV DC'D, NOT PATENT, OKAY TO LEAVE OUT PER DR. ALEXANDRE.
--- NOTE | 2021-10-05 04:44 | NUR ---
SHIFT SUMMARY PT AOX2-3 AND HAS EXPRESSIVE APHASIA WITH DELAYED RESPONSES. PT ABLE TO EXPRESS NEEDS WITH TIME AND COOPERATIVE WITH CARE. PT STILL DOES NOT USE THE CALL LIGHT OFTEN NEEDED BUT WAITS ON STAFF TO TURN OFF BED/CHAIR ALARMS BEFORE GETTING UP. PT RESTED WELL THIS SHIFT WITH A RISE AND FALL OF CHEST, CURRENTLY STILL ASLEEP. THIS NURSE WILL CONTINUE TO MONITOR UNTIL REPORT IS GIVEN.
--- NOTE | 2021-10-05 12:39 | NUR ---
DURING LUNCH, WHILE BEING SUPERVISED, PT ASPIRATED ON MASHED POTATOES AND GRAVY. THEY WERE THEN REMOVED FROM THE TRAY. PT TOLERATING THICKENED LIQUIDS.
--- NOTE | 2021-10-05 17:37 | NUR ---
SHIFT SUMMARY PT AXO 2-3 THOUGH SLOW TO RESPOND. SEE LUNCH TIME NOTE. NO OTHER CHANGES THIS SHIFT. BED IN LOW POSITION, CALL LIGHT WITHIN REACH. CHAIR AND BED ALARM ON. PT DENIES PAIN, SOB AND N/V.
--- NOTE | 2021-10-06 04:31 | NUR ---
SHIFT SUMMARY PT AOX2-3 AT TIMES AND WAS YELLING INTO THE GUZMAN AT THE START OF THIS SHIFT. PT WANTED LIGHTS OFF AND FOR OTHER PATIENTS TO NOT BE LOUD D/T A HERNANDEZ. PT WAS MEDICATED PER EMAR AND ABLE TO REST MOST OF THIS SHIFT. PT HEARD SNORING LOUD UPON ROUNDS AND NO S/S OF DISTRESS. PT CURRENTLY BACK ASLEEP AND THIS NURSE WILL CONTINUE TO MONITOR UNTIL REPORT IS GIVEN.
--- NOTE | 2021-10-06 18:38 | NUR ---
SHIFT SUMMARY PATIENT A&O2-3 HAS EXPRESSIVE APHASIA AND SLOW TO RESPOND. PATIENT DOES NOT UTILIZE CALL LIGHT BUT WILL SET OFF ALARM AND WAIT FOR SOMEONE TO COME TURN IT OFF BEFORE SHE MOVES. PATIENT AWAITING D/C TO LIZZY. VSS. BED IN LOW POSITION WITH CALL LIGHT IN REACH. WILL CONTINUE TO MONITOR.
--- NOTE | 2021-10-07 04:21 | NUR ---
SHIFT SUMMARY PT AOX2-3 AT TIMES AND COOPERATIVE WITH CARE THIS SHIFT. PT STILL AT TIMES CHOKES ON SALAVIA RANDOMLY DURING THIS SHIFT, BUT CLEARS AIRWAY WITH EASE. PT MEDICATED PER EMAR AND ASLEEP WITH RISE AND FALL OF CHEST, NO S/S OF DISTRESS. THIS NURSE WILL CONTINUE TO MONITOR UNTIL REPORT IS GIVEN.
[2021-10-07] MEDS ORDERED: EUTHYROX125 MCG PO (13:45)
[2021-10-07] MEDS ORDERED: LEVE500 PO (13:46)
--- NOTE | 2021-10-07 17:02 | NUR ---
PT DISCHARGED TO [facility]. DAUGHTER ARRIVED TO TRANSPORT. ALL PAPERWORK WAS REVIEWED AND EDUCATIONAL MATERIAL SENT WITH DAUGHTER. MEDICATION FAXED TO [facility]. NO DISTRESS NOTED PT STANDBY TO RESTOOM. PT IMPULSIVE AND WOULD NOT USE CALL LIGHT. ALL PERSONAL BELONGING COLLECTED AND SENT WITH PT.
== END 2021-10-07 16:35 | disposition home or self-care (01) ==
LOC: ER 10:24 → ERHOLD 10:25 → MEDS 10:25
PROVIDERS: Family Medicine; Nurse Practitioner Acute Care; Student in an Organized Health Care Education/Training Program; ADMIT Internal Medicine
DX: G92.8 Other toxic encephalopathy (principal); E03.9 Hypothyroidism, unspecified; E78.5 Hyperlipidemia, unspecified; K21.9 Gastro-esophageal reflux disease without esophagitis; E11.22 Type 2 diabetes mellitus with diabetic chronic kidney disease; I12.9 Hypertensive chronic kidney disease with stage 1 through stage 4 chronic kidney disease, or unspecified chronic kidney disease; N18.30 Chronic kidney disease, stage 3 unspecified; I25.10 Atherosclerotic heart disease of native coronary artery without angina pectoris; E11.649 Type 2 diabetes mellitus with hypoglycemia without coma; G40.909 Epilepsy, unspecified, not intractable, without status epilepticus; N39.0 Urinary tract infection, site not specified; I69.992 Facial weakness following unspecified cerebrovascular disease; I69.920 Aphasia following unspecified cerebrovascular disease; I45.2 Bifascicular block; Z88.1 Allergy status to other antibiotic agents; Z95.1 Presence of aortocoronary bypass graft; Z79.4 Long term (current) use of insulin; Z20.822 Contact with and (suspected) exposure to COVID-19
CPT/HCPCS: 0241U; 36415; 70450; 70551; 71045; 80048; 80053; 80061; 80069; 81001; 82947; 84145; 84146; 84439; 84443; 84481; 84484; 85025; 87077; 87086; 87186; 92507; 92523; 92610; 93005; 93010; 95819; 96372; 97110; 97116; 97161; 97165; 97535; 99285-25; A9270; G0378; J1650; J7030

== ENCOUNTER → 2021-10-31 | Outpatient (CLI) | payer MEDICARE, OTHER ==
[~2021-10-31] MED LIST changes: +ACET500 PO; +ESCI10 PO; +EUTHYROX125 MCG PO; +Fleet Enema132 ML PR; +INSULANI SC
[2021-10-31 12:44] LABS: Free Thyroxine 1.47 ng/dL (0.70-1.60); Thyroid Stimulating Hormone 0.039 uIU/mL (0.360-4.800); Triiodothyronine, Free 2.67 pg/mL (2.18-3.98)
== END ==
LOC: LAB SHORT 11:14
PROVIDERS: Nurse Practitioner Family
DX: E11.22 Type 2 diabetes mellitus with diabetic chronic kidney disease (principal); N18.30 Chronic kidney disease, stage 3 unspecified; Z79.4 Long term (current) use of insulin
CPT/HCPCS: 84439; 84443; 84481

== ENCOUNTER 2022-07-28 19:12 | Emergency (ER) | payer MEDICARE, OTHER ==
[~2022-07-28] VITALS: Ht 160 cm; Wt 79.4 kg
[2022-07-28 20:05] LABS: BASOPHILS ABSOLUTE AUTO 0.06 K/mm3 (0.00-0.23); BASOPHILS PERCENT AUTO 1 % (0-2); EOSINOPHILS ABSOLUTE AUTO 0.68 K/mm3 (0.00-0.68); EOSINOPHILS PERCENT AUTO 6 % (0-6); Hematocrit 43.1 % (33.0-51.0); Hemoglobin 14.8 g/dL (11.5-16.0); IMMATURE GRAN ABSOLUTE AUTO 0.02 K/mm3 (0.00-0.10); IMMATURE GRAN PERCENT AUTO 0 % (0-1); LYMPHOCYTES ABSOLUTE AUTO 2.51 K/mm3 (0.84-5.20); LYMPHOCYTES PERCENT AUTO 21 % (21-46); MONOCYTES ABSOLUTE AUTO 0.75 K/mm3 (0.16-1.47); MONOCYTES PERCENT AUTO 6 % (4-13); Mean Corpuscular HGB 28.9 pg (26.0-34.0); Mean Corpuscular HGB Conc 34.3 g/dL (31.5-36.5); Mean Corpuscular Volume 84 fL (80-100); Mean Platelet Volume 10.4 fL (9.1-12.4); NEUTROPHILS ABSOLUTE AUTO 7.73 K/mm3 (1.96-9.15); NEUTROPHILS PERCENT AUTO 66 % (41-73); Platelet Count 224 K/mm3 (150-400); RDW Coefficient Variation 11.9 % (11.7-14.2); RDW Standard Deviation 36.1 fL (35.1-46.3); Red Blood Cell Count 5.12 M/mm3 (3.80-5.20); White Blood Cell Count 11.75 K/mm3 (4.00-11.30)
[2022-07-28 20:37] LABS: Albumin, Blood 3.6 g/dL (3.4-5.0); Albumin/Globulin Ratio 0.9 (0.8-1.8); Bilirubin, Total 0.6 mg/dL (0.1-1.0); Calcium, Blood 10.4 mg/dL (8.5-10.1); Creatinine, Blood 1.41 mg/dL (0.40-1.00); Total Protein, Blood 7.6 g/dL (6.4-8.2)
[2022-07-28 21:59] LABS: Influenza A, PCR NEGATIVE (NEGATIVE); Influenza B, PCR NEGATIVE (NEGATIVE); Resp Syncytial Virus, PCR NEGATIVE (NEGATIVE); SARS-Cov-2 (COVID-19) PCR, MMC NEGATIVE (NEGATIVE)
[2022-07-28 22:17] LABS: Source, Urine Straight Cath
[2022-07-28 22:20] LABS: Bilirubin, Urine Neg (Neg); Blood, Urine Neg (Neg); Glucose Qualitative, Urine Neg (Neg); Ketones, Urine Neg (Neg); Leukocyte Esterase, Urine 1+ (Neg); Nitrite, Urine Neg (Neg); Protein, Urine 1+ (Neg); Specific Gravity, Urine 1.005 (1.003-1.022); Urobilinogen, Urine NORM (Normal)
[2022-07-28 22:22] LABS: Appearance, Urine Clear (Clear); Color, Urine Yellow (P-Yellow)
[2022-07-28 22:28] LABS: Bacteria Few /hpf; Red Blood Cells, Urine Not Seen /hpf (0-2); Squamous Epithelial Cells Few /hpf (Few)
[2022-07-28] MEDS ORDERED: Bactrim Ds Tab1 EACH PO (22:32)
[2022-07-28] MEDS ORDERED: EUTHYROX88 MCG PO (22:59)
[2022-07-28] MEDS ORDERED: TRULICITY0.75 MG/01 SC (22:59)
[2022-07-28] MEDS ORDERED: CALCIUM CARBON500 M1 PO (23:01)
== END 2022-07-29 00:35 | disposition home or self-care (01) ==
LOC: ER 19:12
PROVIDERS: Physician Assistant
DX: N39.0 Urinary tract infection, site not specified (principal); E03.9 Hypothyroidism, unspecified; I12.9 Hypertensive chronic kidney disease with stage 1 through stage 4 chronic kidney disease, or unspecified chronic kidney disease; N18.30 Chronic kidney disease, stage 3 unspecified; E11.22 Type 2 diabetes mellitus with diabetic chronic kidney disease; E78.5 Hyperlipidemia, unspecified; I25.10 Atherosclerotic heart disease of native coronary artery without angina pectoris; Z87.891 Personal history of nicotine dependence; Z88.1 Allergy status to other antibiotic agents; Z79.899 Other long term (current) drug therapy; Z79.82 Long term (current) use of aspirin; Z20.822 Contact with and (suspected) exposure to COVID-19
CPT/HCPCS: 0241U; 36415; 51701; 71045; 80053; 81001; 85025; 93005; 93010; A9270; J7030

== ENCOUNTER 2022-09-07 22:16 | Emergency (ER) | payer MEDICARE, OTHER ==
[~2022-09-07] VITALS: Ht 162.6 cm; Wt 99.8 kg
[~2022-09-07 22:16] MED LIST changes: +CALCIUM CARBON500 M1 PO; +EUTHYROX88 MCG PO; +TRULICITY0.75 MG/01 SC
== END 2022-09-08 00:33 | disposition home or self-care (01) ==
LOC: ER 22:16
DX: S00.83XA Contusion of other part of head, initial encounter (principal); I12.9 Hypertensive chronic kidney disease with stage 1 through stage 4 chronic kidney disease, or unspecified chronic kidney disease; E11.22 Type 2 diabetes mellitus with diabetic chronic kidney disease; N18.30 Chronic kidney disease, stage 3 unspecified; I25.10 Atherosclerotic heart disease of native coronary artery without angina pectoris; E03.9 Hypothyroidism, unspecified; E78.5 Hyperlipidemia, unspecified; K21.9 Gastro-esophageal reflux disease without esophagitis; Z88.8 Allergy status to other drugs, medicaments and biological substances; Z79.899 Other long term (current) drug therapy; Z86.73 Personal history of transient ischemic attack (TIA), and cerebral infarction without residual deficits; Z87.891 Personal history of nicotine dependence; W18.30XA Fall on same level, unspecified, initial encounter
CPT/HCPCS: 70450; 72125; 93005; 93010

== ENCOUNTER 2022-11-21 14:47 | Emergency (ER) | payer MEDICARE, OTHER ==
[~2022-11-21] VITALS: Ht 152.4 cm; Wt 59.0 kg
[2022-11-21 15:21] LABS: BASOPHILS ABSOLUTE AUTO 0.09 K/mm3 (0.00-0.23); BASOPHILS PERCENT AUTO 1 % (0-2); EOSINOPHILS ABSOLUTE AUTO 0.54 K/mm3 (0.00-0.68); EOSINOPHILS PERCENT AUTO 5 % (0-6); Hematocrit 46.9 % (33.0-51.0); Hemoglobin 16.2 g/dL (11.5-16.0); IMMATURE GRAN ABSOLUTE AUTO 0.03 K/mm3 (0.00-0.10); IMMATURE GRAN PERCENT AUTO 0 % (0-1); LYMPHOCYTES ABSOLUTE AUTO 1.63 K/mm3 (0.84-5.20); LYMPHOCYTES PERCENT AUTO 16 % (21-46); MONOCYTES ABSOLUTE AUTO 0.61 K/mm3 (0.16-1.47); MONOCYTES PERCENT AUTO 6 % (4-13); Mean Corpuscular HGB 28.9 pg (26.0-34.0); Mean Corpuscular HGB Conc 34.5 g/dL (31.5-36.5); Mean Corpuscular Volume 84 fL (80-100); Mean Platelet Volume 10.7 fL (9.1-12.4); NEUTROPHILS PERCENT AUTO 72 % (41-73); Platelet Count 187 K/mm3 (150-400); RDW Coefficient Variation 11.9 % (11.7-14.2); Red Blood Cell Count 5.61 M/mm3 (3.80-5.20)
[2022-11-21 15:39] LABS: Albumin, Blood 3.9 g/dL (3.4-5.0); Bilirubin, Total 0.5 mg/dL (0.1-1.0); Calcium, Blood 10.7 mg/dL (8.5-10.1); Creatinine, Blood 1.19 mg/dL (0.40-1.00); Globulin, Blood 4.1 g/dL (2.2-4.0); Potassium, Blood 4.8 mmol/L (3.5-5.5)
[2022-11-21] MEDS ORDERED: ERGO400 PO (15:39)
[2022-11-21 16:09] LABS: Source, Urine Straight Cath
[2022-11-21 16:13] LABS: Appearance, Urine Clear (Clear); Bilirubin, Urine Neg (Neg); Blood, Urine Neg (Neg); Color, Urine Yellow (P-Yellow); Glucose Qualitative, Urine Neg (Neg); Ketones, Urine Neg (Neg); Leukocyte Esterase, Urine 1+ (Neg); Nitrite, Urine Neg (Neg); Protein, Urine 2+ (Neg); Urobilinogen, Urine NORM (Normal)
[2022-11-21 16:20] LABS: Bacteria Many /hpf; Hyaline Casts 0-2 /lpf (0-2); Red Blood Cells, Urine 0-2 /hpf (0-2); Squamous Epithelial Cells Few /hpf (Few)
[2022-11-21] MEDS ORDERED: LEVFLO500 PO (16:34)
== END 2022-11-21 18:53 | disposition home or self-care (01) ==
LOC: ER 14:47
PROVIDERS: Emergency Medicine
DX: N39.0 Urinary tract infection, site not specified (principal); E03.9 Hypothyroidism, unspecified; I12.9 Hypertensive chronic kidney disease with stage 1 through stage 4 chronic kidney disease, or unspecified chronic kidney disease; E11.22 Type 2 diabetes mellitus with diabetic chronic kidney disease; N18.30 Chronic kidney disease, stage 3 unspecified; I25.10 Atherosclerotic heart disease of native coronary artery without angina pectoris; F03.90 Unspecified dementia, unspecified severity, without behavioral disturbance, psychotic disturbance, mood disturbance, and anxiety; Z86.73 Personal history of transient ischemic attack (TIA), and cerebral infarction without residual deficits; Z95.1 Presence of aortocoronary bypass graft; Z87.891 Personal history of nicotine dependence; Z88.8 Allergy status to other drugs, medicaments and biological substances; Z79.890 Hormone replacement therapy; Z79.82 Long term (current) use of aspirin
CPT/HCPCS: 36415; 51701; 80053; 81001; 85025; 87077; 87086; 87186; 93005; 93010; J1790; J1956